=== PATIENT | female | born 1950 | race Caucasian/White ===

== ENCOUNTER → 2017-02-21 | Outpatient (CLI) | payer MEDICARE ==
--- NOTE | 2017-02-22 07:35 | US ---
EXAMINATION TYPE: US carotid duplex BILAT DATE OF EXAM: 02/21/2017 COMPARISON: NONE CLINICAL HISTORY: R26.89 ABNORMALITIES OF GAIT AND MOBILITY; Left facial numbness EXAM MEASUREMENTS: RIGHT: Peak Systolic Velocity (PSV) cm/sec ----- Right CCA: 61.6 ----- Right ICA: 84.1 ----- Right ECA: 74.8 ICA/CCA ratio: 1.4 RIGHT: End Diastole cm/sec ----- Right CCA: 19.7 ----- Right ICA: 31.2 ----- Right ECA: 16.7 LEFT: Peak Systolic Velocity (PSV) cm/sec ----- Left CCA: 62.5 ----- Left ICA: 83.4 ----- Left ECA: 75.2 ICA/CCA ratio: 1.3 LEFT: End Diastole cm/sec ----- Left CCA: 20.6 ----- Left ICA: 36.3 ----- Left ECA: 12.2 VERTEBRALS (direction of flow): Right Vertebral: Antegrade Left Vertebral: Antegrade Rhythm: Normal Very mild intimal thickening is noted at bilateral ICA and PSV is wnl. Incidental finding of bilatera l thyroid nodules are imaged. IMPRESSION: 1. No evidence of hemodynamically significant stenosis within either carotid system. 2. Incidentally identified thyroid nodules. Full characterization could be performed with thyroid ult rasound.
--- NOTE | 2017-02-22 07:36 | US ---
EXAMINATION TYPE: US pelvic complete DATE OF EXAM: 02/21/2017 COMPARISON: CT 2016 CLINICAL HISTORY: N93.9 ABN Uterine Vaginal Bleeding. Vaginal bleeding x 1 month post menopausal; G; not on hormones TECHNIQUE: Transabdominal (TA) Date of LMP: in 40's EXAM MEASUREMENTS: Uterus: 5.8 x 3.6 x 1.9 cm Endometrial Stripe: 0.6 cm Right Ovary: not seen Left Ovary: not seen 1. Uterus: Anteverted 2. Endometrium: small cyst noted mid endometrium on image # [id number] and # [id number] 3. Right Ovary: not identified 4. Left Ovary: not identified 5. Bilateral Adnexa: wnl 6. Posterior cul-de-sac: wnl Patient was unable to tolerate TV US to better assess endometrium. IMPRESSION: Somewhat limited exam as the patient could not tolerate the transvaginal technique. Endom etrium appears heterogenous and measures upper limits for the patient's postmenopausal status. Direct visualization is recommended.
== END | disposition home or self-care (01) ==
LOC: RADUSWWP 15:19
PROVIDERS: ATTEND Family Medicine
DX: N93.9 Abnormal uterine and vaginal bleeding, unspecified (principal); R26.89 Other abnormalities of gait and mobility; Z78.0 Asymptomatic menopausal state
CPT/HCPCS: 76856; 93880

== ENCOUNTER → 2017-03-21 | Outpatient (CLI) | payer MEDICARE ==
--- NOTE | 2017-03-21 15:35 | US ---
EXAMINATION TYPE: US thyroid st tissue head/neck DATE OF EXAM: 03/21/2017 COMPARISON: Carotid us saw nodules CLINICAL HISTORY: E04.1 Thyroid Nodule. GLAND SIZE: Right Lobe: 4.4 x 1.0 x 1.5 cm Overall Parenchyma: homogenous Left Lobe: 4.4 x 1.2 x1.9 cm Overall Parenchyma: homogeneous Isthmus Thickness: 0.3 cm NODULES RIGHT: # of nodules measured on right: 2 1. 0.7 X 0.5 x 0.7 cm hypoechoic solid nodule at the mid pole with well-defined margins. This nodu le is wider than tall and shows intranodular vascularity. No prior. 2. 1.0 X 0.8 x 0.8 cm isoechoic solid nodule at the lower pole with well-defined margins. This nodu le is taller than wide and shows intranodular vascularity. LEFT: # of nodules measured on left: 3 1. 0.8 X 0.7 x 0.8 cm isoechoic solid nodule at the upper pole with poorly defined margins. This n odule is wider than tall and shows intranodular vascularity. 2. 0.7 X 0.6 x 0.6 cm hypoechoic solid nodule at the mid pole with well-defined margins. This nodul e is wider than tall and shows intranodular vascularity. 3. 0.6 X 0.5 x 0.7 cm hypoechoic solid nodule at the lower pole with well-defined margins. This nod ule is wider than tall and shows no intranodular vascularity. ISTHMUS: # of nodules measured in the isthmus: 0 Bilateral neck scanned, no evidence of lymphadenopathy. IMPRESSION: Multiple thyroid nodules in a mildly enlarged thyroid gland suggests multinodular goiter. The largest solid nodule is of indeterminate suspicion within the right inferior pole, isoechoic, and measuring 1.0 cm. Percutaneous biopsy could be performed of this nodule. Alternatively follow-up ultrasound in 6-12 months could be performed.
--- NOTE | 2017-03-21 16:14 | BD ---
EXAMINATION TYPE: MG DEXA axial skeleton. DATE OF EXAM: 03/21/2017 COMPARISON: NONE CLINICAL HISTORY: screening osteoporosis Height: 5'7 Weight: 212 FRAX RISK QUESTIONS: Alcohol (3 or more units per day): no Family History (Parent hip fracture): no Glucocorticoids (More than 3mos): no (Ex: prednisone, prednisolone, methylprednisolone, dexamethasone, and hydrocortisone). History of Fracture in Adulthood: no Secondary Osteoporosis: 1. Type 1 Diabetes: no 2. Hyperthyroidism: no 3. Menopause before 45: no 4. Malnutrition: no 5. Chronic liver disease: no Rheumatoid Arthritis: no Current Tobacco Use: no RISK FACTORS HISTORY OF: Active: Postmenopausal woman: MEDICATIONS: Additional Medications: arthritis meds, cholesterol, anxiety Additional History: EXAM MEASUREMENTS: Bone mineral densitometry was performed using the [employer] System. Bone mineral density as measured about the Lumbar spine is: ----- L1-L4(G/cm2): 1.291 T Score Values are as follows: ----- L2: 0.2 ----- L3: 1.5 ----- L4: 1.2 ----- L1-L4: 0.9 Bone mineral density about the R hip (g/cm2): 1.003 Bone mineral density about the L hip (g/cm2): 1.004 T Score values are as follows: -----R Neck: -0.3 -----L Neck: -0.2 -----R Total: -0.3 -----L Total: -0.2 IMPRESSION: Normal (Values between +1 and -1 indicate normal bone mass). Consider repeating this study in 5 year s or sooner if there is some new clinical indication. NOTE: T-SCORE=SD OF THE YOUNG ADULT MEAN.
== END | disposition home or self-care (01) ==
LOC: RADUSWWP 14:09
PROVIDERS: ATTEND Family Medicine
DX: E04.2 Nontoxic multinodular goiter (principal); Z13.820 Encounter for screening for osteoporosis
CPT/HCPCS: 76536; 77080

== ENCOUNTER → 2017-03-26 | Outpatient (CLI) | payer MEDICARE | END | disposition home or self-care (01) | LOC: LABWHC1 10:42 | PROVIDERS: ATTEND Family Medicine | DX: E04.1 Nontoxic single thyroid nodule (principal) | CPT/HCPCS: 36415; 84439; 84443 ==

== ENCOUNTER → 2017-04-24 | Outpatient (CLI) | payer MEDICARE | END | disposition home or self-care (01) | LOC: LABWHC1 10:23 | PROVIDERS: ATTEND Family Medicine | DX: B80 Enterobiasis (principal) | CPT/HCPCS: 87328; 87329 ==

== ENCOUNTER → 2017-06-29 | Outpatient (CLI) | payer MEDICARE ==
--- NOTE | 2017-07-03 10:08 | MM ---
Reason for exam: screening (asymptomatic). Last mammogram was performed 1 year and 2 months ago. History: Patient is postmenopausal and is nulliparous. Benign excisional biopsy of both breasts, 1970. Taking estrogen for 2 years. Taking progesterone for 2 years. Physical Findings: A clinical breast exam by your physician is recommended on an annual basis and results should be correlated with mammographic findings. MG 3D Screening Mammo W/Cad Bilateral CC and MLO view(s) were taken. Prior study comparison: May 12, 2016, mammogram, performed at [facility]. May 11, 2015, mammogram, performed at [facility]. There are scattered fibroglandular densities. No significant changes when compared with prior studies. ASSESSMENT: Benign, BI-RAD 2 RECOMMENDATION: Routine screening mammogram of both breasts in 1 year.
== END | disposition home or self-care (01) ==
LOC: RADMAMWWP 14:14
PROVIDERS: ATTEND Family Medicine
DX: Z12.31 Encounter for screening mammogram for malignant neoplasm of breast (principal); E04.1 Nontoxic single thyroid nodule
CPT/HCPCS: 77063; 77067

== ENCOUNTER → 2017-08-21 | Outpatient (CLI) | payer MEDICARE ==
--- NOTE | 2017-08-21 14:52 | US ---
EXAMINATION TYPE: US thyroid st tissue head/neck DATE OF EXAM: 08/21/2017 COMPARISON: NONE CLINICAL HISTORY: E04.1 Nontoxic single thyroid nodule. follow up nodules. No hx of biopsy GLAND SIZE: Right Lobe: 5.3 x 1.3 x 1.3 cm Overall Parenchyma: homogenous Left Lobe: 4.5 x 1.6 x 1.5 cm Overall Parenchyma: homogeneous Isthmus Thickness: 0.4 cm NODULES RIGHT: # of nodules measured on right: 2 1. 0.7 X 0.7 x 0.6 cm hypoechoic solid nodule at the mid pole with well-defined margins. This nodu le is wider than tall and shows intranodular vascularity. Prior size: 0.7 x 0.5 x 0.7 cm 2. 0.7 X 0.8 x 0.6 cm isoechoic solid nodule at the lower pole with well-defined margins. This nodu le is wider than tall and shows intranodular vascularity. Prior size: 1.0 x 0.8 x 0.8 cm LEFT: # of nodules measured on left: 4 1. 1.0 X 0.8 x 0.6 cm isoechoic solid nodule at the upper pole with poorly defined margins. This n odule is taller than wide and shows intranodular vascularity. Prior size: 0.8 x 0.7 x 0.8 cm 2. 0.8 X 0.6 x 0.6 cm hypoechoic solid nodule at the mid pole with well-defined margins. This nodul e is taller than wide and shows intranodular vascularity. Prior size: 0.7 x 0.6 x 0.6 cm 3. 0.6 X 0.7 x 0.5 cm hypoechoic solid nodule at the lower pole with well-defined margins. This nod ule is wider than tall and shows no intranodular vascularity. Prior size: 0.6 x 0.5 x 0.7 cm 4. 0.5 X 0.4 x 0.3 cm cystic nodule at the upper pole with well-defined margins. This nodule is elizabeth ler than wide and shows no intranodular vascularity. Prior size: No prior ISTHMUS: # of nodules measured in the isthmus: 1 1. 0.4 X 0.5 x 0.3 cm hypoechoic solid nodule seen right laterally with well-defined margins. Thi s nodule is wider than tall and shows no intranodular vascularity. Prior size: No prior Bilateral neck scanned, no evidence of lymphadenopathy. IMPRESSION: Overall stability of multiple bilateral thyroid nodules in a multinodular thyroid goiter with 2 new s ubcentimeter nodules identified within the isthmus and left thyroid gland.
== END | disposition home or self-care (01) ==
LOC: RADUSWWP 13:57
PROVIDERS: ATTEND Family Medicine
DX: E04.2 Nontoxic multinodular goiter (principal)
CPT/HCPCS: 76536

== ENCOUNTER → 2018-01-17 | Outpatient (CLI) | payer MEDICARE ==
--- NOTE | 2018-01-17 21:35 | CT ---
"EXAMINATION TYPE: CT brain w con DATE OF EXAM: 01/17/2018 COMPARISON: None HISTORY: Numbness to left side of face x [address] DLP: 945.5 mGycm Automated exposure control for dose reduction was used. CONTRAST: CT scan of the head is performed with IV Contrast, patient injected with 100 mL of Isovue 300. FINDINGS: In the high right frontal lobe there is a rim-enhancing 1.1 x 1.1 cm lesion axial image 39 that measu res 1.2 cm craniocaudal dimension sagittal image 22. There is low density extending laterally and inf eriorly consistent with vasogenic edema. No additional enhancing lesions are seen. Cosme-white matter differentiation is otherwise preserved. The ventricles and sulci are within normal limits in size. T he globes are intact and the visualized sinuses are clear. IMPRESSION: Rim-enhancing 1.1 cm lesion high right frontal lobe with local mass effect or surrounding vasogenic edema. Differential includes abscess and neoplasm, metastatic disease would BE favored ove r primary brain tumor such as GBM. Other etiologies are not excluded. Clinical correlation advised. A Yellow level critical message alert has been initiated for Flory Cordoba MD via the [employer] | Critical Results System on 01/17/2018 9:32 PM. This message alert has been sent to Flory cheatham MD via the preferences provided by the clinician for the receipt of Radiology Critical Findings. Joyce casillasage ID [id number]."
== END | disposition home or self-care (01) ==
LOC: RADCTMAIN 17:41
PROVIDERS: ATTEND Family Medicine
DX: G93.89 Other specified disorders of brain (principal)
CPT/HCPCS: 82565; 84520; 70460; 36415; Q9967

== ENCOUNTER → 2018-01-31 | Outpatient (CLI) | payer MEDICARE ==
--- NOTE | 2018-01-31 10:19 | US ---
EXAMINATION TYPE: US abdomen complete DATE OF EXAM: 01/31/2018 COMPARISON: NONE CLINICAL HISTORY: R93.3 Abn findings on imaging of digestive tract. Patient states she had a PET scan last week and was told to have Ultrasound based on finding of PET EXAM MEASUREMENTS: Liver Length: 14.0 cm Gallbladder Wall: 0.2 cm CBD: 0.47 cm Spleen: 9.8 cm Right Kidney: 8.2 x 4.8 x 5.0 cm Left Kidney: 9.3 x 5.5 x 5.8 cm Pancreas: Obscured by bowel gas Liver: wnl Gallbladder: No stones seen Evidence for sonographic Ortiz's sign: no CBD: wnl Spleen: Multiple hypoechoic areas seen throughout spleen Right Kidney: No hydronephrosis or masses seen Left Kidney: No hydronephrosis or masses seen Upper IVC: wnl Abd Aorta: wnl Order states ATTN: spleen Multiple hypoechoic areas seen The liver is homogenous. The intrahepatic portion of the IVC and proximal abdominal aorta are within normal limits. There is no evidence of cholelithiasis. Common bile duct is unremarkable. The visu alized portions of the pancreas are homogenous. Kidneys are symmetric and free of hydronephrosis. N o renal lesions are seen. IMPRESSION: 1. Multiple nonspecific hypoechoic area seen throughout the spleen. Correlate with CT. CT from 2017 r eveals no splenic abnormalities.
== END | disposition home or self-care (01) ==
LOC: RADUSMAIN 09:22
PROVIDERS: ATTEND Family Medicine
DX: R93.3 Abnormal findings on diagnostic imaging of other parts of digestive tract (principal)
CPT/HCPCS: 76700

== ENCOUNTER → 2018-02-27 | Outpatient (CLI) | payer MEDICARE ==
--- NOTE | 2018-02-27 10:14 | MR ---
EXAMINATION TYPE: MR brain wo/w con DATE OF EXAM: 02/27/2018 COMPARISON: CT brain from January 17, 2018 HISTORY: Cerebral infarction per order, symptoms of left facial numbness for 6 months. Symptoms of di zziness an mass in brain per patient. TECHNIQUE: Multiplanar, multisequence images of the brain and brainstem is performed without and with IV contras t, utilizing 9.5 mL intravenous Gadavist . FINDINGS: Diffusion weighted images demonstrate no evidence of a recent infarct or other diffusion ab normality. There is no worrisome extra-axial fluid collection. The ventricular system and cisternal spaces are normal in size and appearance. The brain volume is age appropriate. There are few scatte red small foci of T2 hyperintensity seen throughout the white matter bilaterally. Approximate 5 punct ate lesions measuring under 3 mm in size are scattered throughout the brain parenchyma bilaterally. Correlating with recent CT in the high right frontal lobe there is heterogeneous with rim enhancing i ntraparenchymal mass measuring 1.5 x 1.3 cm transversely axial image 27 x 1.4 cm craniocaudal dimensi on coronal image 17 prepped slightly larger in size versus recent CT. There is significant local mass effect with surrounding vasogenic edema appreciated extending inferiorly and posteriorly similar to CT. No new or additional enhancing lesions are clearly seen on MRI. Midline structures demonstrate normal morphology. The craniocervical junction appears within normal limits. The dural venous sinuses appear patent. The visualized sinuses are clear and the globes are intact. IMPRESSION: There is 1.5 cm heterogeneous rim-enhancing right frontal intraparenchymal mass perhaps s lightly larger from CT. Primary neoplasm versus more likely metastatic neoplasm would be favored in d ifferential, other etiologies such as abscess are not excluded. Clinical correlation advised. Oncolog y referral recommended. Consider neurosurgical and radiation oncology referral.
== END | disposition home or self-care (01) ==
LOC: RADMRIMAIN 09:13
PROVIDERS: ATTEND Family Medicine
DX: G93.89 Other specified disorders of brain (principal)
CPT/HCPCS: 70553; A9581

== ENCOUNTER → 2018-03-05 | Outpatient (CLI) | payer MEDICARE ==
--- NOTE | 2018-03-05 15:06 | US ---
EXAMINATION TYPE: US thyroid st tissue head/neck DATE OF EXAM: 03/05/2018 COMPARISON: 2018 CLINICAL HISTORY: E04.1 Nontoxic single thyroid nodule. GLAND SIZE: Right Lobe: 5.0 x 1.4 x 1.8 cm Overall Parenchyma: homogenous Left Lobe: 5.3 x 1.2 x 1.9 cm Overall Parenchyma: homogeneous Isthmus Thickness: 0.2 cm NODULES RIGHT: # of nodules measured on right: 2 1. 0.8 X 0.7 x 0.6 cm solid nodule at the mid pole with well-defined margins; . This nodule is wid er than tall and shows intranodular vascularity. Prior size: 0.7 x 0.7 x 0.6 cm 2. 0.8 X 0.8 x 0.6 cm isoechoic solid nodule at the lower pole with well-defined margins; . This no dule is wider than tall and shows intranodular vascularity. Prior size: 0.7 x 0.8 x 0.6 cm LEFT: # of nodules measured on left: 4 1. 1.4 X 0.6 x 0.3 cm solid nodule at the upper pole with poorly defined margins; . This nodule is taller than wide and shows intranodular vascularity. Prior size: 0.8 x 0.7 x 0.8 cm 2. 0.8 X 0.6 x 0.7 cm solid nodule at the mid pole with well-defined margins; . This nodule is wide r than tall and shows intranodular vascularity. Prior size: 0.8 x 0.6 x 0.6 cm 3. 0.8 X 0.8 x 0.6 cm solid nodule at the lower pole with well-defined margins; This nodule is wider than tall and shows no intranodular vascularity. Prior size: 0.6 x 0.7 x 0.5 cm 4. 0.4 X 0.4 x 0.3 cm cyst nodule at the upper pole with well-defined margins; . This nodule is wi mia than tall and shows no intranodular vascularity. Prior size: 0.5 x 0.4 x 0.3 cm ISTHMUS: # of nodules measured in the isthmus: 1 1. 0.4 X 0.2 x 0.4 cm mixed nodule at the rt side pole with well-defined margins; . This nodule is wider than tall and shows no intranodular vascularity. Prior size: 0.4 x 0.5 x 0.3 cm Bilateral neck scanned, no evidence of lymphadenopathy. IMPRESSION: 1. Thyromegaly with multinodular thyroid with a couple of the lesions demonstrating interval increase in size most notably the 1.4 cm nodule within the left lobe.
== END | disposition home or self-care (01) ==
LOC: RADUSWWP 14:01
PROVIDERS: ATTEND Family Medicine
DX: E04.2 Nontoxic multinodular goiter (principal)
CPT/HCPCS: 76536

== ENCOUNTER → 2018-03-06 | Outpatient (CLI) | payer MEDICARE ==
[2018-03-06 07:42] LABS: Blood Urea Nitrogen 18 mg/dL (7-17)
--- NOTE | 2018-03-06 10:52 | CT ---
EXAMINATION TYPE: CT ChestAbdPelvis w con DATE OF EXAM: 03/06/2018 INDICATION: mass/lesion head COMPARISON: 05/18/[address] DLP: 1596.10 mGycm CONTRAST: Performed with Oral Contrast and with IV Contrast, patient injected with 100 mL of Isovue 300. TECHNIQUE: Axial images at 5 mm thick sections. Reconstructed images in the coronal plane. Delayed images through the kidneys. FINDINGS: CT CHEST: Portion of the thyroid visualized is normal. No suspicious lung nodules or focal infiltrates are present. No enlarged mediastinal or hilar adenopathy is evident. The ascending aorta diameter at the level of the main pulmonary artery is 3.6 cm. The main pulmonary artery diameter at the bifurcation is 2.[address] ABDOMEN: Liver: Normal Spleen: Normal Pancreas: Mildly atrophic Adrenal glands: The adrenal glands are normal. Gallbladder: Normal Kidneys: No masses are evident. No hydronephrosis is present. No cysts are present. Delayed images were obtained through the kidneys, which remain unremarkable. Peripelvic cysts are present on the le ft. No ureteral dilatation is evident. Aorta: Vascular calcification is within the aorta. Inferior vena cava: Normal. CT PELVIS: Loops of bowel within the abdomen and pelvis are normal. There are loops of bowel which are incom pletely distended or lack oral contrast limiting their evaluation. Diverticulosis without acute diver ticulitis is within the sigmoid colon. Appendix: Not identified. No suspicious tubular structures or inflammatory changes are evident. Urinary bladder: Normal. Genitourinary structures: Uterus and adnexal regions are normal. Osseous structures: No suspicious lytic or sclerotic lesions. IMPRESSIONS: 1. No suspicious changes to suggest metastatic disease.
== END ==
LOC: RADCTMAIN 06:12
PROVIDERS: ATTEND Neurological Surgery
DX: R22.0 Localized swelling, mass and lump, head (principal)
CPT/HCPCS: 82565; 84520; 71260; 74177; 36415; Q9967

== ENCOUNTER → 2018-08-21 | Outpatient (CLI) | payer MEDICARE ==
--- NOTE | 2018-08-21 13:18 | US ---
EXAMINATION TYPE: US venous doppler duplex LE LT DATE OF EXAM: 08/21/2018 12:17 PM COMPARISON: NONE CLINICAL HISTORY: R22.42 Localized swelling. Left leg swelling, pt currently on chemo for brain CA SIDE PERFORMED: Left TECHNIQUE: The lower extremity deep venous system is examined utilizing real time linear array sonog daron with graded compression, doppler sonography and color-flow sonography. VESSELS IMAGED: External Iliac Vein (EIV) Common Femoral Vein Deep Femoral Vein Greater Saphenous Vein * Femoral Vein Popliteal Vein Small Saphenous Vein * Proximal Calf Veins (* superficial vessels) Left Leg: Positive for DVT, from left EIV to proximal calf veins Results called Dr. Cortez at time of exam IMPRESSION: DVT as noted above.
== END ==
LOC: RADUSWWP 11:44
PROVIDERS: ATTEND Internal Medicine Hematology & Oncology
DX: I82.890 Acute embolism and thrombosis of other specified veins (principal)

== ENCOUNTER 2018-09-06 00:22 | Inpatient (IN) | payer MEDICARE ==
--- NOTE | 2018-09-06 00:41 | ED ---
GI Bleed HPI - General Chief complaint: GI Bleed Stated complaint: GI Bleed Time Seen by Provider: 09/06/18 00:40 Source: patient Mode of arrival: ambulatory Limitations: no limitations - History of Present Illness Initial comments: Casi is a 8-year-old female with an extensive past medical history most significant for brain cancer treated with chemo and radiation, patient was diagnosed with a left lower extremity DVT last month and prescribed L Diana. Patient reports that she was diagnosed with influenza A yesterday and prescribed Tamiflu. She reports she's had multiple soft bowel movements throughout the day today but this evening she felt as though she was given have a bowel movement but just passed large blood, per rectum. Patient has no history of GI bleeding. She does have a history of diverticulosis on previous colonoscopy. Upon arrival was noted the patient was per family tachycardic with heart rates in the 150s, patient denied any palpitations or history of A. fib. - Related Data Home Medications Medication Instructions Recorded Confirmed Atorvastatin [Lipitor] 10 mg PO HS 05/18/17 05/18/17 LORazepam [Ativan] 0.5 mg PO DAILY PRN 05/18/17 05/18/17 Previous Rx's Medication Instructions Recorded metroNIDAZOLE [Flagyl] 500 mg PO QID 10 Days 05/18/17 Allergies Allergy/AdvReac Type Severity Reaction Status Date / Time cephalexin Allergy Rash/Hives Verified 09/06/18 00:36 Review of Systems ROS Statement: Those systems with pertinent positive or pertinent negative responses have been documented in the HPI. ROS Other: All systems not noted in ROS Statement are negative. Past Medical History Past Medical History: Cancer, Deep Vein Thrombosis (DVT), Hyperlipidemia Additional Past Medical History / Comment(s): diverticulitis, brain cancer History of Any Multi-Drug Resistant Organisms: None Reported Past Surgical History: Tonsillectomy Additional Past Surgical History / Comment(s): breast surgery Past Psychological History: No Psychological Hx Reported Smoking Status: Never smoker Past Alcohol Use History: Occasional Past Drug Use History: None Reported General Exam - General Exam Comments Initial Comments: Physical Exam GENERAL: Chronically ill appearing No distress HENT: Normocephalic Devise attached to scalp EYES: PERRL, EOMI PULMONARY: Unlabored respirations. No audible rales rhonchi or wheezing was noted. CARDIOVASCULAR: Irregularly irregular, tachycardic ABDOMEN: Soft and nontender with normal bowel sounds. SKIN: Skin is clear with no lesions or rashes and otherwise unremarkable. No Pallor : Deferred NEUROLOGIC: Patient is alert and oriented x3. Moving all extremities spontaneously MUSCULOSKELETAL: Normal extremities with adequate strength and full range of motion. No lower extremity swelling or edema. No calf tenderness. PSYCHIATRIC: Normal psychiatric evaluation. Limitations: no limitations Limitations: no limitations Course Vital Signs 09/06/18 09/06/18 09/06/18 00:33 01:50 02:34 Temperature 97.7 F Pulse Rate 73 152 H 100 Respiratory 18 18 19 Rate Blood Pressure 101/68 115/104 100/65 O2 Sat by Pulse 97 99 97 Oximetry 09/06/18 09/06/18 09/06/18 02:50 03:12 04:44 Temperature Pulse Rate 102 H 126 H 97 Respiratory 18 22 19 Rate Blood Pressure 111/93 121/79 116/75 O2 Sat by Pulse 96 96 Oximetry Medical Decision Making - Medical Decision Making Patient was seen and evaluated history was obtained from the patient and review of medical record Patient presented for bright red blood per rectum however upon arrival it was noted the patient was tachycardic with heart rate in the 150s she denies any h istory of A. fib EKG concerning for A. fib Labs and imaging are ordered Rectal exam has bright red blood Due to the fact that the patient is on L Diana and does have GI bleeding I do not feel she will benefit from heparin for this new A. fib Cardizem drip was ordered for weight management, patient did receive a bolus of Cardizem shortly afterward she did become hypotensive and her heart rate was down to the 80s, Cardizem drip was then decreased from 10-5 she was heart rate then increased again after she ambulated to the restroom and her Cardizem drip was increased again to 10. Electrolytes are unremarkable, troponin is negative, considering that the patient does have a recent history of DVT and is now presenting with new arrhythmia there is concern for pulmonary embolism therefore PE study was ordered but resulted with no evidence of acute pulmonary embolism. High suspicion the patient's lower GI bleeding is due to diverticular bleeding and she does have a history of diverticulitis in the past known diverticula and bright red blood, she had no melena. She's not had any active bleeding while in the emergency department. I will plan to admit the patient for lower GI bleeding with new onset atrial fibrillation. - Lab Data Result diagrams: 09/06/18 01:40 09/06/18 01:40 Lab Results 09/06/18 09/06/18 09/06/18 Range/Units 01:40 01:40 01:40 WBC 3.5 L (3.8-10.6) k/uL RBC 4.17 (3.80-5.40) m/uL Hgb 12.8 (11.4-16.0) gm/dL Hct 38.4 (34.0-46.0) % MCV 92.0 (80.0-100.0) fL MCH 30.6 (25.0-35.0) pg MCHC 33.2 (31.0-37.0) g/dL RDW 15.5 (11.5-15.5) % Plt Count 201 (150-450) k/uL Neutrophils % 60 % Lymphocytes % 22 % Monocytes % 11 % Eosinophils % 4 % Basophils % 0 % Neutrophils # 2.1 (1.3-7.7) k/uL Lymphocytes # 0.8 L (1.0-4.8) k/uL Monocytes # 0.4 (0-1.0) k/uL Eosinophils # 0.1 (0-0.7) k/uL Basophils # 0.0 (0-0.2) k/uL PT (9.0-12.0) sec INR (<1.2) APTT (22.0-30.0) sec Sodium 140 (137-145) mmol/L Potassium 3.4 L (3.5-5.1) mmol/L Chloride 109 H (98-107) mmol/L Carbon Dioxide 24 (22-30) mmol/L Anion Gap 7 mmol/L BUN 12 (7-17) mg/dL Creatinine 0.53 (0.52-1.04) mg/dL Est GFR (CKD-EPI)AfAm >90 (>60 ml/min/1.73 sqM) Est GFR (CKD-EPI)NonAf >90 (>60 ml/min/1.73 sqM) Glucose 119 H (74-99) mg/dL Calcium 9.0 (8.4-10.2) mg/dL Magnesium 2.1 (1.6-2.3) mg/dL Total Bilirubin 0.4 (0.2-1.3) mg/dL AST 21 (14-36) U/L ALT 21 (9-52) U/L Alkaline Phosphatase 81 (38-126) U/L Troponin I (0.000-0.034) ng/mL NT-Pro-B Natriuret Pep 1270 pg/mL Total Protein 5.5 L (6.3-8.2) g/dL Albumin 3.0 L (3.5-5.0) g/dL Stool Occult Blood (Negative) 09/06/18 09/06/18 09/06/18 Range/Units 01:40 01:40 03:17 WBC (3.8-10.6) k/uL RBC (3.80-5.40) m/uL Hgb (11.4-16.0) gm/dL Hct (34.0-46.0) % MCV (80.0-100.0) fL MCH (25.0-35.0) pg MCHC (31.0-37.0) g/dL RDW (11.5-15.5) % Plt Count (150-450) k/uL Neutrophils % % Lymphocytes % % Monocytes % % Eosinophils % % Basophils % % Neutrophils # (1.3-7.7) k/uL Lymphocytes # (1.0-4.8) k/uL Monocytes # (0-1.0) k/uL Eosinophils # (0-0.7) k/uL Basophils # (0-0.2) k/uL PT 9.8 (9.0-12.0) sec INR 0.9 (<1.2) APTT 23.1 (22.0-30.0) sec Sodium (137-145) mmol/L Potassium (3.5-5.1) mmol/L Chloride (98-107) mmol/L Carbon Dioxide (22-30) mmol/L Anion Gap mmol/L BUN (7-17) mg/dL Creatinine (0.52-1.04) mg/dL Est GFR (CKD-EPI)AfAm (>60 ml/min/1.73 sqM) Est GFR (CKD-EPI)NonAf (>60 ml/min/1.73 sqM) Glucose (74-99) mg/dL Calcium (8.4-10.2) mg/dL Magnesium (1.6-2.3) mg/dL Total Bilirubin (0.2-1.3) mg/dL AST (14-36) U/L ALT (9-52) U/L Alkaline Phosphatase (38-126) U/L Troponin I <0.012 (0.000-0.034) ng/mL NT-Pro-B Natriuret Pep pg/mL Total Protein (6.3-8.2) g/dL Albumin (3.5-5.0) g/dL Stool Occult Blood Positive H (Negative) - EKG Data -: EKG Interpreted by Me EKG Comments: EKG was obtained at 90 9 AM due to arrhythmia noted on electronic device monitor and profound tachycardia Rate is 163 rhythm is narrow complex irregularly irregular rhythm consistent with atrial fibrillation with rapid ventricular response, normal axis, normal intervals, QS 82, QTc [address] elevations depressions no evidence of acute ischemia or infarction. Repeat EKG was obtained at 4:48 AM, repeat is 1:15, rhythm is narrow complex irregularly irregular consistent with atrial fibrillation, normal axis, normal intervals, QS 82, QTc [address] elevations depressions or evidence of acute ischemia or infarction. Critical Care Time Critical Care Time: Yes Total Critical Care Time: 30 Critical Care Time: Critical Care Critical care time was exclusive of separately billable procedures and treating other patients. Critical care was necessary to treat or prevent imminent or life-threatening deterioration. Critical care was time spent personally by me on the following activities: development of treatment plan with patient or surrogate, discussions with consu ltants, discussions with primary provider, evaluation of patient's response to treatment, examination of patient, obtaining history from patient or surrogate, ordering and performing treatments and interventions, ordering and review of laboratory studies, ordering and review of radiographic studies, pulse oximetry, re-evaluation of patient's condition and review of old charts. Disposition Clinical Impression: Lower GI bleed, Atrial fibrillation with RVR, New onset atrial fibrillation Disposition: ADMITTED IP TO THIS HOSP Condition: Serious Is patient prescribed a controlled substance at d/c from ED?: No Referrals: Flory Cordoba MD [Primary Care Provider] - 1-2 days
[2018-09-06] MEDS ORDERED: SODIUM CHLORIDE 0.9% 1,000 ML IV STA (01:08)
[2018-09-06] MEDS ORDERED: DILTIAZEM DRIP BOLUS FROM BAG 1 MG SOLN IV ONE (01:09)
[2018-09-06] MEDS ORDERED: DILTIAZEM 125 MG in SODIUM CHLORIDE 0.9% 100 ML IV SCH (01:30)
[2018-09-06 01:54] LABS: Basophils % (A) 0 %; Eosinophils # (A) 0.1 k/uL (0-0.7); Eosinophils % (A) 4 %; HCT 38.4 % (34.0-46.0); HGB 12.8 gm/dL (11.4-16.0); Lymphocytes # (A) 0.8 k/uL (1.0-4.8); Lymphocytes % (A) 22 %; MCH 30.6 pg (25.0-35.0); MCHC 33.2 g/dL (31.0-37.0); Mean Platelet Volume 7.7; Monocytes # (A) 0.4 k/uL (0-1.0); Monocytes % (A) 11 %; Neutrophils # (A) 2.1 k/uL (1.3-7.7); Neutrophils % (A) 60 %; Platelet Count 201 k/uL (150-450); RBC 4.17 m/uL (3.80-5.40); RDW 15.5 % (11.5-15.5); WBC 3.5 k/uL (3.8-10.6)
[2018-09-06 02:11] LABS: INR 0.9 (<1.2); Partial Thromboplastin Time 23.1 sec (22.0-30.0); Prothrombin Time 9.8 sec (9.0-12.0)
[2018-09-06 02:18] LABS: ALT 21 U/L (9-52); AST 21 U/L (14-36); Alkaline Phosphatase 81 U/L (38-126); Anion Gap 7 mmol/L; Blood Urea Nitrogen 12 mg/dL (7-17); Carbon Dioxide 24 mmol/L (22-30); Chloride 109 mmol/L (98-107); Glucose 119 mg/dL (74-99); Magnesium 2.1 mg/dL (1.6-2.3); Potassium 3.4 mmol/L (3.5-5.1); Sodium 140 mmol/L (137-145); Total Bilirubin 0.4 mg/dL (0.2-1.3); Total Protein 5.5 g/dL (6.3-8.2)
--- NOTE | 2018-09-06 02:42 | XR ---
EXAM: XR Chest, 2 Views CLINICAL HISTORY: ITS.REASON XR Reason: Chest Pain TECHNIQUE: Frontal and lateral views of the chest. COMPARISON: No relevant prior studies available. FINDINGS: Lungs: Unremarkable. The lungs are clear. Pleural space: Unremarkable. No pneumothorax. Heart: Moderate cardiomegaly versus artifact from poor inspiration. Mediastinum: Unremarkable. Bones/joints: Mild degenerative changes of the thoracic spine. Other findings: Poor inspiration. IMPRESSION: No acute findings.
--- NOTE | 2018-09-06 04:38 | CT ---
EXAM: CT Angiography Chest With Intravenous Contrast CLINICAL HISTORY: ITS.REASON CT Reason: Pain TECHNIQUE: Axial computed tomographic angiography images of the chest with intravenous contrast using pulmonary embolism protocol. CTDI is 9.2 mGy and DLP is 372.8 mGy-cm. This CT exam was performed using one or more of the following dose reduction techniques: automated exposure control, adjustment of the mA and/or kV according to patient size, and/or use of iterative reconstruction technique. MIP reconstructed images were created and reviewed. COMPARISON: CT dated 03/06/2018. FINDINGS: Pulmonary arteries: Unremarkable. No evidence of pulmonary embolism. Aorta: No acute findings. No thoracic aortic aneurysm. Lungs: Unchanged 4 mm solid pulmonary nodule in the right middle lobe (series 406 image 100). Mild bronchiectasis and bronchial wall thickening diffusely. Pleural space: Unremarkable. No significant effusion. No pneumothorax. Heart: Unremarkable. No cardiomegaly. No significant pericardial effusion. No evidence of RV dysfunction. Bones/joints: No acute fracture. No dislocation. Soft tissues: Unremarkable. Lymph nodes: Unremarkable. No enlarged lymph nodes. Tubes, lines and devices: Unchanged 9 mm sub-solid pulmonary nodule with a 7 mm solid component in the right middle lobe (series 406 image 108). ACR White Paper guidelines (MacMahon, et al. Radiology 2017; 284(1):228-43) recommend follow-up chest CT every year until 5 years. IMPRESSION: 1. No evidence of pulmonary embolism. 2. Unchanged 4 mm solid pulmonary nodule in the right middle lobe (series 406 image 100). ACR White Paper guidelines (MacMahon, et al. Radiology 2017; 284(1):228-43) suggest the following. For low-risk patients, no follow-up is necessary. For high-risk patients (smoking history or other known risk factors) an optional chest CT at 12 months could be performed.
[2018-09-06] MEDS ORDERED: NALOXONE 0.4 MG/ML 1 ML VIAL IV PRN (04:46)
[2018-09-06] MEDS ORDERED: ACETAMINOPHEN TAB 325 MG TAB PO PRN (05:37)
[2018-09-06] MEDS ORDERED: IBUPROFEN 400 MG TAB PO PRN (05:37)
[2018-09-06 06:59] VITALS: BMI 35.1
--- NOTE | 2018-09-06 10:38 | ECHOF ---
Referral Reason:A-fib/Heart failure MEASUREMENTS -------- HEIGHT: 170.2 cm WEIGHT: 103.4 kg BP: RVIDd: 2.6 cm (< 3.3) IVSd: 1.3 cm (0.6 - 1.1) LVIDd: 3.5 cm (3.9 - 5.3) LVPWd: 1.2 cm (0.6 - 1.1) IVSs: 1.6 cm LVIDs: 2.4 cm LVPWs: 1.6 cm LAESV Index (A-L): 17.35 ml/m Ao Diam: 2.7 cm (2.0 - 3.7) AV Cusp: 2.0 cm (1.5 - 2.6) LA Diam: 2.8 cm (2.7 - 3.8) EPSS: 0.7 cm AR PHT: 273 ms RAP: 5.00 mmHg RVSP: 23.80 mmHg MV EF SLOPE: 87.11 mm/s (70 - 150) MV EXCURSION: 1.18 cm (> 18.000) FINDINGS -------- Atrial fibrillation. This was a technically good study. The left ventricular size is normal. There is mild concentric left ventricular hypertrophy. Overa ll left ventricular systolic function is normal with, an EF between 55 - 60 %. The right ventricle is normal in size. Normal LA size by volume 22+/-6 ml/m2. The right atrial size is normal. Trace amount of aortic regurgitation. The mitral valve leaflets are mildly thickened. There is trace mitral regurgitation. Mild tricuspid regurgitation present. The right ventricular systolic pressure, as measured by Doppl er, is 23.80mmHg. There is no pulmonic regurgitation present. The aortic root size is normal. Normal inferior vena cava with normal inspiratory collapse consistent with estimated right atrial pre ssure of 5 mmHg. There is no pericardial effusion. CONCLUSIONS -------- 1. Atrial fibrillation. 2. This was a technically good study. 3. The left ventricular size is normal. 4. There is mild concentric left ventricular hypertrophy. 5. Overall left ventricular systolic function is normal with, an EF between 55 - 60 %. 6. The right ventricle is normal in size. 7. Normal LA size by volume 22+/-6 ml/m2. 8. The right atrial size is normal. 9. Trace amount of aortic regurgitation. 10. The mitral valve leaflets are mildly thickened. 11. There is trace mitral regurgitation. 12. Mild tricuspid regurgitation present. 13. The right ventricular systolic pressure, as measured by Doppler, is 23.80mmHg. 14. There is no pulmonic regurgitation present. 15. The aortic root size is normal. 16. Normal inferior vena cava with normal inspiratory collapse consistent with estimated right atrial pressure of 5 mmHg. 17. There is no pericardial effusion. [employer] PROFESSOR: Sharda Guadarrama RDCS
[2018-09-06] MEDS: VERAPAMIL SR 180 MG TABLET.ER PO SCH (11:15)
[2018-09-06 12:44] LABS: Glucose,Whole Blood 97 mg/dL (75-99)
--- NOTE | 2018-09-06 13:49 | P.CRDCN ---
History of Present Illness History of present illness: This is Dr. Branham dictating a consult on this patient The patient was interviewed and examined by me IMPRESSION / ASSESSMENT: Atrial fibrillation with RVR, first documented episode PLAN: Rate controlled with verapamil 180 mg by mouth daily and taper off IV Cardizem TSH levels drawn 2-D echo and Doppler study to assess cardiac structure and function pericardium Continue rate control and anticoagulation for atrial fibrillation HPI Cartilages consulted for atrial fibrillation with RVR Patient is being treated for a brain cancer with chemotherapy and radiation Her main complaints are shortness of breath. She was diagnosed with influenza A. She has a history of DVT in the left lower extremity that was diagnosed last month She is on anticoagulation ROS: No fever chills or rigors, no cough, phlegm or expectoration, no nausea, vomiting or diarrhea, no hematuria, dysuria, no musculoskeletal complaints, no strokes or seizures, no skin lesions. EXAMINATION: She is lying comfortably in bed mildly tachypneic Breath sounds are reduced bilaterally Heart sounds are irregular she is on IV Cardizem Abdomen soft Blood pressure 120/87 mmHg Afebrile REVIEW OF LABS, ECG & MEDICAL DATA Hemoglobin 12.8, potassium 3.4, sodium 140, BUN 12 and creatinine 0.5 2 normal troponins are normal TSH was ordered and is normal at 1.97 Past Medical History Past Medical History: Cancer, Deep Vein Thrombosis (DVT), Hyperlipidemia Additional Past Medical History / Comment(s): diverticulitis, brain cancer History of Any Multi-Drug Resistant Organisms: None Reported Past Surgical History: Ablation, Tonsillectomy Additional Past Surgical History / Comment(s): breast surgery, brain surgery Past Psychological History: No Psychological Hx Reported Smoking Status: Never smoker Past Alcohol Use History: Occasional Past Drug Use History: None Reported Medications and Allergies Home Medications Medication Instructions Recorded Confirmed Type Atorvastatin [Lipitor] 10 mg PO HS 05/18/17 09/06/18 History LORazepam [Ativan] 0.5 mg PO DIRECTED PRN 05/18/17 09/06/18 History Acetaminophen Tab [Tylenol Tab] 325 mg PO Q4H PRN 09/06/18 09/06/18 History Apixaban [Eliquis] 5 mg PO BID 09/06/18 09/06/18 History Oseltamivir [Tamiflu] 75 mg PO Q12HR 04/05/19 04/05/19 History Temozolomide [Temodar] 300 mg PO DIRECTED 09/06/18 09/06/18 History cycloSPORINE [Restasis] 1 applicator BOTH EYES BID 09/06/18 09/06/18 History Allergies Allergy/AdvReac Type Severity Reaction Status Date / Time cephalexin Allergy Rash/Hives Verified 09/06/18 08:13 Physical Exam Vitals: Vital Signs Temp Pulse Pulse Resp BP BP Pulse Ox 09/06/18 13:00 73 20 103/70 09/06/18 12:30 74 24 93/60 09/06/18 12:00 88 22 105/77 09/06/18 11:30 986 F H 77 20 108/69 09/06/18 11:00 82 23 120/87 09/06/18 10:30 96 24 09/06/18 10:00 111 H 13 115/73 94 L 09/06/18 09:30 89 21 94 L 09/06/18 09:00 83 20 112/72 93 L 09/06/18 08:30 97.7 F 89 20 96 09/06/18 08:09 87 12 94 L 09/06/18 06:34 97.4 F L 118 H 15 109/80 93 L 09/06/18 05:54 97.8 F 98 16 96/73 98 09/06/18 04:44 97 19 116/75 96 09/06/18 03:12 126 H 22 121/79 96 09/06/18 02:50 102 H 18 111/93 09/06/18 02:34 100 19 100/65 97 09/06/18 01:50 152 H 18 115/104 99 09/06/18 01:20 149 H 09/06/18 00:33 97.7 F 73 18 101/68 97 Intake and Output 09/05/18 09/06/18 09/06/18 22:59 06:59 14:59 Intake Total 6.25 91.234 Balance 6.25 91.234 Intake: Intake, IV Titration 6.25 91.234 Amount Diltiazem 125 mg In 6.25 91.234 Sodium Chloride 0.9% 100 ml @ Per Protocol IV .Q0M ESPERANZA Rx#:[id number] Other: # Voids 1 Weight 103.419 kg Results 09/06/18 01:40 09/06/18 01:40 Cardiac Enzymes 09/06/18 09/06/18 09/06/18 Range/Units 01:40 01:40 07:44 AST 21 (14-36) U/L Troponin I <0.012 <0.012 (0.000-0.034) ng/mL Coagulation 09/06/18 Range/Units 01:40 PT 9.8 (9.0-12.0) sec APTT 23.1 (22.0-30.0) sec CBC 09/06/18 Range/Units 01:40 WBC 3.5 L (3.8-10.6) k/uL RBC 4.17 (3.80-5.40) m/uL Hgb 12.8 (11.4-16.0) gm/dL Hct 38.4 (34.0-46.0) % Plt Count 201 (150-450) k/uL Comprehensive Metabolic Panel 09/06/18 Range/Units 01:40 Sodium 140 (137-145) mmol/L Potassium 3.4 L (3.5-5.1) mmol/L Chloride 109 H (98-107) mmol/L Carbon Dioxide 24 (22-30) mmol/L BUN 12 (7-17) mg/dL Creatinine 0.53 (0.52-1.04) mg/dL Glucose 119 H (74-99) mg/dL Calcium 9.0 (8.4-10.2) mg/dL AST 21 (14-36) U/L ALT 21 (9-52) U/L Alkaline Phosphatase 81 (38-126) U/L Total Protein 5.5 L (6.3-8.2) g/dL Albumin 3.0 L (3.5-5.0) g/dL Current Medications Generic Name Dose Route Start Last Admin Trade Name Freq PRN Reason Stop Dose Admin Acetaminophen 650 mg 09/06/18 05:37 Tylenol Tab PO Q6HR PRN Mild Pain or Fever > 100.5 Diltiazem HCl 125 mg/ Sodium 125 mls @ 0 mls/hr 09/06/18 01:30 09/06/18 12:55 Chloride IV 0 mls/hr .Q0M ESPERANZA 0 mls/hr Titration Protocol Per Protocol Ibuprofen 400 mg 09/06/18 05:37 Motrin PO Q6HR PRN Mild Pain or Fever > 100.5 Naloxone HCl 0.2 mg 09/06/18 04:46 Narcan IV Q2M PRN Opioid Reversal Verapamil HCl 180 mg 09/06/18 09:00 09/06/18 11:15 Isoptin Sr PO 180 mg DAILY ESPERANZA Administration Intake and Output 09/05/18 09/06/18 09/06/18 22:59 06:59 14:59 Intake Total 6.25 91.234 Balance 6.25 91.234 Intake: Intake, IV Titration 6.25 91.234 Amount Diltiazem 125 mg In 6.25 91.234 Sodium Chloride 0.9% 100 ml @ Per Protocol IV .Q0M ESPERANZA Rx#:[id number] Other: # Voids 1 Weight 103.419 kg 09/06/18 01:40 09/06/18 01:40
[2018-09-06] MEDS ORDERED: Potassium Replacement Protocol 1 EACH MISC MISCELLANE PRN (15:45)
[2018-09-06 16:11] LABS: Anisocytosis Slight; Basophils % (A) 0 %; Eosinophils # (A) 0.1 k/uL (0-0.7); Eosinophils % (A) 2 %; HCT 34.1 % (34.0-46.0); HGB 11.1 gm/dL (11.4-16.0); Hypochromasia Slight; Lymphocytes # (A) 0.8 k/uL (1.0-4.8); Lymphocytes % (A) 28 %; MCH 29.8 pg (25.0-35.0); MCHC 32.6 g/dL (31.0-37.0); MCV 91.2 fL (80.0-100.0); Mean Platelet Volume 9.5; Monocytes # (A) 0.3 k/uL (0-1.0); Monocytes % (A) 12 %; Neutrophils # (A) 1.6 k/uL (1.3-7.7); Neutrophils % (A) 55 %; Platelet Count 172 k/uL (150-450); RBC 3.74 m/uL (3.80-5.40); WBC 2.8 k/uL (3.8-10.6)
[2018-09-06] MEDS: PANTOPRAZOLE 40 MG/10 ML VIAL IVP SCH (16:28)
[2018-09-06] MEDS: POTASSIUM CHLORIDE ER 20 MEQ TAB.ER PO SCH ×2 (16:29→17:51)
[2018-09-06 18:01] LABS: Glucose,Whole Blood 140 mg/dL (75-99)
--- NOTE | 2018-09-06 20:44 | P.HPIM ---
History of Present Illness H&P Date: 09/06/18 Chief Complaint: Blood per rectum Patient is 68-year-old female with a known history of brain cancer treated with radiation and scheduled for chemotherapy, recent left lower extremity DVT diagnosed on 08/13/2018, currently on Eliquis, diagnosed with influenza A yesterday and is currently taking Tamiflu at home, hyperlipidemia, history of diverticulosis as per previous colonoscopy came to ER with complaints of bright red blood per rectum along with bowel movement since yesterday. Patient did have softer bowel movement yesterday and today evening and passed large amount of blood per rectum. Denied any history of previous GI bleeding. Patient does have shortness of breath on admission. No complaints of chest pain. No fever no chills. No nausea vomiting or diarrhea and abdominal pain. EKG on admission showed atrial fibrillation with rapid ventricular rate. Lamin mckenna does not have any history of atrial fibrillation. Hemoglobin 12.8. FOBT positive. TSH within normal limits. Chest x-ray showed no acute findings CT angiogram of the chest showed no evidence of pulmonary embolism. Unchanged 4mm solid pulmonary nodule in the right middle lobe. Review of Systems Constitutional: Patient denies any fever or chills . No generalized weakness or weight loss. Abdomen: Patient denied nausea vomiting and diarrhea and abdominal pain. Blood per rectum. Cardiovascular: Patient denies any chest pain or short of breath no palpitations. Respiratory: patient denied any cough is from production. No shortness of breath Neurologic: Patient denied any numbness or tingling headache. Musculoskeletal: Patient denies any complaints of joint swelling or deformity. Skin: Negative Psychiatric: Negative Endocrine: No heat or cold intolerance. No recent weight gain. Genitourinary: No dysuria or hematuria. All other 14 point ROS negative except the above Past Medical History Past Medical History: Cancer, Deep Vein Thrombosis (DVT), Hyperlipidemia Additional Past Medical History / Comment(s): diverticulitis, brain cancer History of Any Multi-Drug Resistant Organisms: None Reported Past Surgical History: Ablation, Tonsillectomy Additional Past Surgical History / Comment(s): breast surgery, brain surgery Past Psychological History: No Psychological Hx Reported Smoking Status: Never smoker Past Alcohol Use History: Occasional Past Drug Use History: None Reported Medications and Allergies Home Medications Medication Instructions Recorded Confirmed Type Atorvastatin [Lipitor] 10 mg PO HS 05/18/17 09/06/18 History LORazepam [Ativan] 0.5 mg PO DIRECTED PRN 05/18/17 09/06/18 History Acetaminophen Tab [Tylenol Tab] 325 mg PO Q4H PRN 09/06/18 09/06/18 History Apixaban [Eliquis] 5 mg PO BID 09/06/18 09/06/18 History Oseltamivir [Tamiflu] 75 mg PO Q12HR 09/06/18 09/06/18 History Temozolomide [Temodar] 300 mg PO DIRECTED 09/06/18 09/06/18 History cycloSPORINE [Restasis] 1 applicator BOTH EYES BID 09/06/18 09/06/18 History Allergies Allergy/AdvReac Type Severity Reaction Status Date / Time cephalexin Allergy Rash/Hives Verified 09/06/18 08:13 Physical Exam Vitals: Vital Signs Temp Pulse Pulse Resp BP BP Pulse Ox 09/06/18 11:00 82 23 120/87 09/06/18 10:30 96 24 09/06/18 10:00 111 H 13 115/73 94 L 09/06/18 09:30 89 21 94 L 09/06/18 09:00 83 20 112/72 93 L 09/06/18 08:30 97.7 F 89 20 96 09/06/18 08:09 87 12 94 L 09/06/18 06:34 97.4 F L 118 H 15 109/80 93 L 09/06/18 05:54 97.8 F 98 16 96/73 98 09/06/18 04:44 97 19 116/75 96 09/06/18 03:12 126 H 22 121/79 96 09/06/18 02:50 102 H 18 111/93 09/06/18 02:34 100 19 100/65 97 09/06/18 01:50 152 H 18 115/104 99 09/06/18 01:20 149 H 09/06/18 00:33 97.7 F 73 18 101/68 97 Intake and Output 09/05/18 09/06/18 09/06/18 22:59 06:59 14:59 Intake Total 6.25 82 Balance 6.25 82 Intake: Intake, IV Titration 6.25 82 Amount Diltiazem 125 mg In 6.25 82 Sodium Chloride 0.9% 100 ml @ Per Protocol IV .Q0M [facility] Rx#:[id number] Other: # Voids 325 Weight 103.419 kg PHYSICAL EXAMINATION: Patient is lying in the bed comfortably, no acute distress, awake alert and oriented.. HEENT: Normocephalic. Neck is supple. Pupils reactive. Nostrils clear. Oral cavity is moist. Ears reveal no drainage. Neck reveals no JVD, carotid bruits, or thyromegaly. CHEST EXAMINATION: Trachea is central. Symmetrical expansion. Lung simpson clear to auscultation and percussion. CARDIAC: Normal S1, S2 with no gallops. No murmurs . Irregularly irregular rhythm. ABDOMEN: Soft. Bowel sounds normal. No organomegaly. No abdominal bruits. Extremities: reveal no edema. No clubbing or cyanosis Neurologically awake, alert, oriented x3 with well-coordinated movements. No focal deficits noted Skin: No rash or skin lesions. Psychiatric: Coperative. Nonsuicidal Musculoskeletal: No joint swelling or deformity. Normal range of motion. Results CBC & Chem 7: 09/06/18 15:30 09/06/18 01:40 Labs: Abnormal Lab Results - Last 24 Hours (Table) 09/06/18 09/06/18 09/06/18 Range/Units 01:40 01:40 03:17 WBC 3.5 L (3.8-10.6) k/uL Lymphocytes # 0.8 L (1.0-4.8) k/uL Potassium 3.4 L (3.5-5.1) mmol/L Chloride 109 H (98-107) mmol/L Glucose 119 H (74-99) mg/dL Total Protein 5.5 L (6.3-8.2) g/dL Albumin 3.0 L (3.5-5.0) g/dL Stool Occult Blood Positive H (Negative) Thrombosis Risk Factor Assmnt - DVT/VTE Prophylaxis DVT/VTE Prophylaxis: Mechanical Prophylaxis ordered - Choose All That Apply Any of the Below Risk Factors Present?: Yes Each Factor Represents 1 point: Obesity (BMI >25) Other Risk Factors: Yes Each Risk Factor Represents 2 Points: Age 61-74 years, Malignancy Each Risk Factor Represents 3 Points: Family history of DVT/PE, History of DVT/PE Other congenital or acquired thrombophilia - If yes, enter type in comment: No Thrombosis Risk Factor Assessment Total Risk Factor Score: 11 Thrombosis Risk Factor Assessment Level: High Risk Assessment and Plan Assessment: New onset atrial fibrillation with rapid regular rate. Acute lower GI bleed. Likely diverticular bleed. Acute blood loss anemia. Recent left lower extremity DVT. Currently on Eliquis Influenza positive. Currently on Tamiflu Brain cancer treated with chemo and radiation History of diverticulosis Hyperlipidemia Plan: Patient was initially started on Cardizem drip. Currently started on oral verapamil 180 mg by mouth daily as per cardiology. TSH is within normal limits. 2-D echocardiogram was ordered. Patient will be continued on her home medications. Monitor H&H closely. Gastroenterology was consulted due to GI bleed. Anticoagulation has been held at this time due to GI bleed. Further recommendations based on the clinical course. Prognosis is guarded.
[2018-09-06] MEDS: ATORVASTATIN 10 MG TAB PO SCH (21:13)
[2018-09-06] MEDS: OSELTAMIVIR 75 MG CAP PO SCH (21:13)
[2018-09-06] MEDS: cycloSPORINE 0.05% OPHTH 0.4 ML DROPERETTE BOTH EYES SCH (21:14)
[2018-09-06 21:24] LABS: Glucose,Whole Blood 89 mg/dL (75-99)
[2018-09-07 06:27] LABS: Anisocytosis Slight; Basophils % (A) 0 %; Eosinophils # (A) 0.1 k/uL (0-0.7); Eosinophils % (A) 3 %; HCT 31.8 % (34.0-46.0); HGB 10.3 gm/dL (11.4-16.0); Hypochromasia Slight; Lymphocytes # (A) 0.6 k/uL (1.0-4.8); Lymphocytes % (A) 22 %; MCH 29.6 pg (25.0-35.0); MCHC 32.3 g/dL (31.0-37.0); MCV 91.7 fL (80.0-100.0); Mean Platelet Volume 9.7; Monocytes # (A) 0.3 k/uL (0-1.0); Monocytes % (A) 10 %; Neutrophils # (A) 1.7 k/uL (1.3-7.7); Neutrophils % (A) 62 %; Platelet Count 152 k/uL (150-450); RBC 3.46 m/uL (3.80-5.40); RDW 16.6 % (11.5-15.5); WBC 2.7 k/uL (3.8-10.6)
[2018-09-07 07:06] LABS: Anion Gap 4 mmol/L; Blood Urea Nitrogen 7 mg/dL (7-17); Calcium 8.4 mg/dL (8.4-10.2); Carbon Dioxide 27 mmol/L (22-30); Chloride 109 mmol/L (98-107); Glucose 90 mg/dL (74-99); Potassium 3.8 mmol/L (3.5-5.1); Sodium 140 mmol/L (137-145)
[2018-09-07] MEDS: PANTOPRAZOLE 40 MG/10 ML VIAL IVP SCH (09:21)
[2018-09-07] MEDS: OSELTAMIVIR 75 MG CAP PO SCH ×2 (09:22→21:45)
[2018-09-07] MEDS: cycloSPORINE 0.05% OPHTH 0.4 ML DROPERETTE BOTH EYES SCH ×2 (09:23→21:45)
[2018-09-07] MEDS: VERAPAMIL SR 120 MG TABLET.ER PO SCH (10:53)
--- NOTE | 2018-09-07 11:42 | P.PN ---
Subjective Patient is doing very well. Yesterday she converted to sinus rhythm. I treated her with verapamil 180 mg by mouth daily for rate control but that didn't seem to drop blood pressure so this morning we'll reduce the dose to 120 mg by mouth daily She has no chest discomfort dizziness lightheadedness palpitations She looks very comfortable Breath sounds are clear no rhonchi no crackles Heart sounds S1 and S2 are normal no murmurs or gallop. Abdomen soft Extremity is warm no edema Labs are reviewed hemoglobin 10.3, potassium 3.8 renal function normal troponin is normal Impression Paroxysmal atrial fibrillation with RVR Patient already anticoagulated with ELIQUIS that this is on hold until GI clearance is obtained Suggest Continue verapamil at a lower dose of 120 mg by mouth daily along with ELIQUIS in the long run Objective - Vital Signs Vital signs: Vital Signs Temp 98.7 F 09/07/18 08:00 Pulse 68 09/07/18 10:55 Resp 14 09/07/18 10:00 BP 125/72 09/07/18 10:55 Pulse Ox 97 09/07/18 10:00 Intake & Output 09/06/18 09/07/18 09/07/18 18:59 06:59 18:59 Intake Total 91.234 Balance 91.234 Intake: Intake, IV Titration 91.234 Amount Diltiazem 125 mg In 91.234 Sodium Chloride 0.9% 100 ml @ Per Protocol IV .Q0M [facility] Rx#:[id number] Other: Voiding Method Bedside Commode Bedside Commode Bedside Commode # Voids 0 1 - Labs CBC & Chem 7: 09/07/18 05:09 09/07/18 05:09 Labs: Abnormal Lab Results - Last 24 Hours (Table) 09/06/18 09/06/18 09/07/18 Range/Units 15:30 17:50 05:09 WBC 2.8 L 2.7 L (3.8-10.6) k/uL RBC 3.74 L 3.46 L (3.80-5.40) m/uL Hgb 11.1 L 10.3 L (11.4-16.0) gm/dL Hct 31.8 L (34.0-46.0) % RDW 16.0 H 16.6 H (11.5-15.5) % Lymphocytes # 0.8 L 0.6 L (1.0-4.8) k/uL Chloride (98-107) mmol/L Creatinine (0.52-1.04) mg/dL POC Glucose (mg/dL) 140 H (75-99) mg/dL 09/07/18 Range/Units 05:09 WBC (3.8-10.6) k/uL RBC (3.80-5.40) m/uL Hgb (11.4-16.0) gm/dL Hct (34.0-46.0) % RDW (11.5-15.5) % Lymphocytes # (1.0-4.8) k/uL Chloride 109 H (98-107) mmol/L Creatinine 0.50 L (0.52-1.04) mg/dL POC Glucose (mg/dL) (75-99) mg/dL
[2018-09-07] MEDS ORDERED: POTASSIUM CHLORIDE ER 20 MEQ TAB.ER PO STA (16:37)
[2018-09-07] MEDS: ATORVASTATIN 10 MG TAB PO SCH (21:45)
--- NOTE | 2018-09-08 00:41 | P.PN ---
Subjective Progress Note Date: 09/07/18 Principal diagnosis: Acute GI bleed Atrial fibrillation with rapid ventricular rate Patient is 68-year-old female with a known history of brain cancer treated with radiation and scheduled for chemotherapy, recent left lower extremity DVT diagnosed on 08/13/2018, currently on Eliquis, diagnosed with influenza A yesterday and is currently taking Tamiflu at home, hyperlipidemia, history of diverticulosis as per previous colonoscopy came to ER with complaints of bright red blood per rectum along with bowel movement since yesterday. Patient did have softer bowel movement yesterday and today evening and passed large amount of blood per rectum. Denied any history of previous GI bleeding. Patient does have shortness of breath on admission. No complaints of chest pain. No fever no chills. No nausea vomiting or diarrhea and abdominal pain. EKG on admission showed atrial fibrillation with rapid ventricular rate. Patient does not have any history of atrial fibrillation. Hemoglobin 12.8. FOBT positive. TSH within normal limits. Chest x-ray showed no acute findings CT angiogram of the chest showed no evidence of pulmonary embolism. Unchanged 4mm solid pulmonary nodule in the right middle lobe. 09/07/2018 Patient denied any complaints of chest pain or shortness of breath. Currently patient is in sinus rhythm. No further episodes of blood in the stools. Hemog lobin is 10.3, dropped from 11.1 yesterday.. Elevating GI clearance for restarting anticoagulation. No headache or dizziness or lightheadedness. Patient is being monitored in the ICU. Current medications reviewed. Objective - Vital Signs Vital signs: Vital Signs Temp 97.6 F 09/07/18 16:00 Pulse 72 09/07/18 18:00 Resp 24 09/07/18 19:00 BP 108/64 09/07/18 19:00 Pulse Ox 93 L 09/07/18 19:00 Intake & Output 09/07/18 09/07/18 09/08/18 06:59 18:59 06:59 Other: Voiding Method Bedside Commode Bedside Commode # Voids 1 2 - Exam PHYSICAL EXAMINATION: Patient is lying in the bed comfortably, no acute distress, awake alert and oriented.. HEENT: Normocephalic. Neck is supple. Pupils reactive. Nostrils clear. Oral cavity is moist. Ears reveal no drainage. Neck reveals no JVD, carotid bruits, or thyromegaly. CHEST EXAMINATION: Trachea is central. Symmetrical expansion. Lung simpson clear to auscultation and percussion. CARDIAC: Normal S1, S2 with no gallops. No murmurs ABDOMEN: Soft. Bowel sounds normal. No organomegaly. No abdominal bruits. Extremities: reveal no edema. No clubbing or cyanosis Neurologically awake, alert, oriented x3 with well-coordinated movements. No focal deficits noted Skin: No rash or skin lesions. Psychiatric: Coperative. Nonsuicidal Musculoskeletal: No joint swelling or deformity. Normal range of motion. - Labs CBC & Chem 7: 09/07/18 05:09 09/07/18 05:09 Labs: Abnormal Lab Results - Last 24 Hours (Table) 09/07/18 09/07/18 Range/Units 05:09 05:09 WBC 2.7 L (3.8-10.6) k/uL RBC 3.46 L (3.80-5.40) m/uL Hgb 10.3 L (11.4-16.0) gm/dL Hct 31.8 L (34.0-46.0) % RDW 16.6 H (11.5-15.5) % Lymphocytes # 0.6 L (1.0-4.8) k/uL Chloride 109 H (98-107) mmol/L Creatinine 0.50 L (0.52-1.04) mg/dL Assessment and Plan Assessment: New onset atrial fibrillation with rapid regular rate. Converted to sinus rhythm now. Acute lower GI bleed. Likely diverticular bleed. Acute blood loss anemia. Recent left lower extremity DVT. Currently on Eliquis Influenza positive. Currently on Tamiflu Brain cancer treated with chemo and radiation History of diverticulosis Hyperlipidemia Plan: Patient was initially started on Cardizem drip. Currently started on oral verapamil 180 mg by mouth daily as per cardiology. TSH is within normal limits. 2-D echocardiogram was ordered. Patient will be continued on her home medications. Monitor H&H closely. Gastroenterology was consulted due to GI bleed. Anticoagulation has been held at this time due to GI bleed. Further recommendations based on the clinical course. Prognosis is guarded. Time with Patient: Greater than 30
[2018-09-08 07:24] LABS: Anisocytosis Slight; HCT 31.3 % (34.0-46.0); HGB 10.8 gm/dL (11.4-16.0); MCH 30.8 pg (25.0-35.0); MCHC 34.4 g/dL (31.0-37.0); MCV 89.6 fL (80.0-100.0); Mean Platelet Volume 9.9; Platelet Count 162 k/uL (150-450); RBC 3.49 m/uL (3.80-5.40); RDW 16.8 % (11.5-15.5); WBC 2.2 k/uL (3.8-10.6)
[2018-09-08 07:32] LABS: Anion Gap 4 mmol/L; Blood Urea Nitrogen 6 mg/dL (7-17); Calcium 8.7 mg/dL (8.4-10.2); Carbon Dioxide 27 mmol/L (22-30); Chloride 110 mmol/L (98-107); Glucose 89 mg/dL (74-99); Potassium 3.9 mmol/L (3.5-5.1); Sodium 141 mmol/L (137-145)
[2018-09-08] MEDS: PANTOPRAZOLE 40 MG/10 ML VIAL IVP SCH (09:13)
[2018-09-08] MEDS: HEPARIN SODIUM,PORCINE 5,000 UNIT/ML 1 ML VIAL SQ SCH ×2 (09:13→16:10)
[2018-09-08] MEDS: OSELTAMIVIR 75 MG CAP PO SCH ×2 (09:28→20:23)
[2018-09-08] MEDS: cycloSPORINE 0.05% OPHTH 0.4 ML DROPERETTE BOTH EYES SCH ×2 (09:29→20:29)
[2018-09-08] MEDS: VERAPAMIL SR 120 MG TABLET.ER PO SCH (09:29)
--- NOTE | 2018-09-08 12:38 | P.CRDCN ---
History of Present Illness History of present illness: Patient is a 68-year-old female with paroxysmal A. fib with RVR. She is doing well from a cardiac standpoint. She continues to maintain sinus rhythm. Vital signs are stable on verapamil 120 mg daily. Patient denies any chest discomfort, palpitations, dizziness, or lightheadedness. She is resting comfortably in bed. GENERAL: Well-appearing, well-nourished and in no acute distress. NECK: Supple without JVD or thyromegaly. LUNGS: Breath sounds clear to auscultation bilaterally. Respiration equal and unlabored. No wheezes, rales or rhonchi. HEART: Regular rate and rhythm without murmurs, rubs or gallops. S1 and S2 heard. EXTREMITIES: Normal range of motion, no edema. No clubbing or cyanosis. Peripheral pulses intact and strong. Assessment: Paroxysmal atrial fibrillation with RVR, maintaining sinus rhythm, on novel anticoagulation DVT, on novel anticoagulation Hyperlipidemia, on atorvastatin Plan: We will continue current medication regimen, including Eliquis. Please contact for any further recommendations Past Medical History Past Medical History: Cancer, Deep Vein Thrombosis (DVT), Hyperlipidemia Additional Past Medical History / Comment(s): diverticulitis, brain cancer History of Any Multi-Drug Resistant Organisms: None Reported Past Surgical History: Ablation, Tonsillectomy Additional Past Surgical History / Comment(s): breast surgery, brain surgery Past Psychological History: No Psychological Hx Reported Smoking Status: Never smoker Past Alcohol Use History: Occasional Past Drug Use History: None Reported Medications and Allergies Home Medications Medication Instructions Recorded Confirmed Type Atorvastatin [Lipitor] 10 mg PO HS 05/18/17 09/06/18 History LORazepam [Ativan] 0.5 mg PO DIRECTED PRN 05/18/17 09/06/18 History Acetaminophen Tab [Tylenol Tab] 325 mg PO Q4H PRN 09/06/18 09/06/18 History Apixaban [Eliquis] 5 mg PO BID 09/06/18 09/06/18 History Oseltamivir [Tamiflu] 75 mg PO Q12HR 09/06/18 09/06/18 History Temozolomide [Temodar] 300 mg PO DIRECTED 09/06/18 09/06/18 History cycloSPORINE [Restasis] 1 applicator BOTH EYES BID 09/06/18 09/06/18 History Allergies Allergy/AdvReac Type Severity Reaction Status Date / Time cephalexin Allergy Rash/Hives Verified 09/06/18 08:13 Physical Exam Vitals: Vital Signs Temp Pulse Pulse Resp BP Pulse Ox 09/08/18 11:00 82 09/08/18 10:00 82 23 09/08/18 09:00 98.0 F 73 30 H 120/63 93 L 09/08/18 08:00 80 26 H 93/63 94 L 09/08/18 07:00 71 30 H 93/63 94 L 09/08/18 06:00 64 30 H 120/63 91 L 09/08/18 05:00 66 26 H 120/63 90 L 09/08/18 04:00 72 26 H 92 L 09/08/18 03:00 67 22 91 L 09/08/18 02:00 66 25 H 110/89 94 L 09/08/18 01:00 72 24 110/89 92 L 09/08/18 00:08 73 25 H 110/89 93 L 09/08/18 00:00 97.8 F 26 H 122/69 94 L 09/07/18 23:00 72 31 H 122/69 93 L 09/07/18 22:00 73 31 H 111/59 92 L 09/07/18 21:00 73 30 H 111/59 93 L 09/07/18 20:00 28 H 108/64 92 L 09/07/18 19:00 24 108/64 93 L 09/07/18 18:00 72 23 105/73 96 09/07/18 17:00 67 20 105/73 93 L 09/07/18 16:00 97.6 F 71 68 20 99/67 94 L 09/07/18 15:00 73 18 100/65 94 L 09/07/18 14:00 76 18 114/66 94 L 09/07/18 13:00 78 25 H 114/66 95 Intake and Output 09/07/18 09/08/18 09/08/18 22:59 06:59 14:59 Other: Voiding Method Bedside Commode Bedside Commode # Voids 1 # Bowel Movements 1 Results 09/08/18 06:58 09/08/18 06:58 CBC 09/08/18 Range/Units 06:58 WBC 2.2 L (3.8-10.6) k/uL RBC 3.49 L (3.80-5.40) m/uL Hgb 10.8 L (11.4-16.0) gm/dL Hct 31.3 L (34.0-46.0) % Plt Count 162 (150-450) k/uL Comprehensive Metabolic Panel 09/08/18 Range/Units 06:58 Sodium 141 (137-145) mmol/L Potassium 3.9 (3.5-5.1) mmol/L Chloride 110 H (98-107) mmol/L Carbon Dioxide 27 (22-30) mmol/L BUN 6 L (7-17) mg/dL Creatinine 0.50 L (0.52-1.04) mg/dL Glucose 89 (74-99) mg/dL Calcium 8.7 (8.4-10.2) mg/dL Current Medications Generic Name Dose Route Start Last Admin Trade Name Freq PRN Reason Stop Dose Admin Acetaminophen 650 mg 09/06/18 05:37 Tylenol Tab PO Q6HR PRN Mild Pain or Fever > 100.5 Atorvastatin Calcium 10 mg 09/06/18 21:00 09/07/18 21:45 Lipitor PO 10 mg HS ESPERANZA Administration Cyclosporine 1 drops 09/06/18 21:00 09/08/18 09:29 Restasis 0.05% Ophth Soln BOTH EYES 1 drops BID ESPERANZA Administration Heparin Sodium (Porcine) 5,000 unit 09/08/18 08:00 09/08/18 09:13 Heparin SQ 5,000 unit Q8HR ESPERANZA Administration Diltiazem HCl 125 mg/ Sodium 125 mls @ 0 mls/hr 09/06/18 01:30 09/06/18 12:55 Chloride IV 0 mls/hr .Q0M ESPERANZA 0 mls/hr Titration Protocol Per Protocol Ibuprofen 400 mg 09/06/18 05:37 Motrin PO Q6HR PRN Mild Pain or Fever > 100.5 Miscellaneous Information 1 each 09/06/18 15:45 Potassium Per Protocol MISCELLANE DAILY PRN Per Protocol Protocol Naloxone HCl 0.2 mg 09/06/18 04:46 Narcan IV Q2M PRN Opioid Reversal Oseltamivir Phosphate 75 mg 09/06/18 21:00 09/08/18 09:28 Tamiflu PO 75 mg Q12HR ESPERANZA Administration Pantoprazole Sodium 40 mg 09/06/18 15:15 09/08/18 09:13 Protonix IVP 40 mg DAILY ESPERANZA Administration Verapamil HCl 120 mg 09/07/18 10:00 09/08/18 09:29 Isoptin Sr PO 120 mg DAILY ESPERANZA Administration Intake and Output 09/07/18 09/08/18 09/08/18 22:59 06:59 14:59 Other: Voiding Method Bedside Commode Bedside Commode # Voids 1 # Bowel Movements 1 09/08/18 06:58 09/08/18 06:58
--- NOTE | 2018-09-08 15:42 | P.CONS ---
History of Present Illness - Reason for Consult Consult date: 09/07/18 GI bleeding - History of Present Illness The patient is a 68-year-old female with a known history of brain cancer treated with radiation and scheduled for chemotherapy, recent left lower extremity DVT diagnosed on 08/13/2018, currently on Eliquis, diagnosed with influenza A the day prior to admission currently taking Tamiflu at home, hyperlipidemia, history of diverticulosis as per previous colonoscopy came to ER with complaints of bright red blood per rectum that started after multiple bowel movements at home. This has improved after admission and today she reports passing normal colored BM. Denied any history of previous GI bleeding. Patient does have shortness of breath on admission. No complaints of chest pain. No fever no chills. No nausea vomiting or diarrhea and abdominal pain. The patient was found to have paroxysmal AFib with rapid ventricular response. Cardiology is following and would like to restart antiplatelets based on our recommendations. Chest x-ray showed no acute findings CT angiogram of the chest showed no evidence of pulmonary embolism. Unchanged 4mm solid pulmonary nodule in the right middle lobe. Review of Systems CONSTITUTIONAL: Denies any fevers, chills, weight change or fatigue. CARDIOVASCULAR: Denies any chest pain, palpitations high or low blood pressures RESPIRATORY: Denies any shortness of breath, hemoptysis or cough. GENITOURINARY: No dysuria or hematuria. MUSCULOSKELETAL: No weakness reported. SKIN: Denies any new rashes or lesions, jaundice or pallor. PSYCHIATRIC: Denies any depression or anxiety. NEUROLOGY: Denies headache, denies any new focal deficits. EARS/NOSE/THROAT: No recent hearing change, congestion, nasal discharge or sore throat. EYES: No pain in eyes, discharge or change in vision. GASTROINTESTINAL: As per HPI. Past Medical History Past Medical History: Cancer, Deep Vein Thrombosis (DVT), Hyperlipidemia Additional Past Medical History / Comment(s): diverticulitis, brain cancer History of Any Multi-Drug Resistant Organisms: None Reported Past Surgical History: Ablation, Tonsillectomy Additional Past Surgical History / Comment(s): breast surgery, brain surgery Past Psychological History: No Psychological Hx Reported Smoking Status: Never smoker Past Alcohol Use History: Occasional Past Drug Use History: None Reported Medications and Allergies Home Medications Medication Instructions Recorded Confirmed Type Atorvastatin [Lipitor] 10 mg PO HS 05/18/17 09/06/18 History LORazepam [Ativan] 0.5 mg PO DIRECTED PRN 05/18/17 09/06/18 History Acetaminophen Tab [Tylenol Tab] 325 mg PO Q4H PRN 09/06/18 09/06/18 History Apixaban [Eliquis] 5 mg PO BID 09/06/18 09/06/18 History Oseltamivir [Tamiflu] 75 mg PO Q12HR 09/06/18 09/06/18 History Temozolomide [Temodar] 300 mg PO DIRECTED 09/06/18 09/06/18 History cycloSPORINE [Restasis] 1 applicator BOTH EYES BID 09/06/18 09/06/18 History Allergies Allergy/AdvReac Type Severity Reaction Status Date / Time cephalexin Allergy Rash/Hives Verified 09/06/18 08:13 Physical Exam Vitals: Vital Signs Temp Pulse Pulse Resp BP BP Pulse Ox 09/07/18 10:55 68 125/72 09/07/18 10:00 70 14 105/61 97 09/07/18 09:00 68 19 109/66 97 09/07/18 08:12 65 14 09/07/18 08:00 98.7 F 67 65 17 118/64 109/66 96 09/07/18 07:00 65 17 118/64 97 09/07/18 06:00 64 18 97 09/07/18 05:00 60 17 95 09/07/18 04:00 98.4 F 70 18 121/65 96 09/07/18 03:00 65 17 96 09/07/18 02:00 69 16 118/64 96 09/07/18 01:00 69 22 118/64 98 09/07/18 00:09 71 21 118/64 92 L 09/07/18 00:00 73 20 105/59 96 09/06/18 23:00 67 18 97 09/06/18 22:00 73 22 109/69 97 09/06/18 21:45 91 L 09/06/18 21:00 79 23 109/69 94 L 09/06/18 20:00 98.4 F 77 21 108/72 95 09/06/18 19:00 68 23 99/74 09/06/18 18:30 67 20 103/67 09/06/18 18:00 70 20 103/67 09/06/18 17:30 86 19 104/71 09/06/18 17:00 72 23 106/79 09/06/18 16:30 11 L 113/72 09/06/18 16:06 87 19 09/06/18 16:00 97.5 F L 75 20 113/72 96 09/06/18 15:30 75 19 95/73 95 09/06/18 15:00 64 18 98/71 09/06/18 14:30 64 16 116/53 09/06/18 14:00 76 21 97/66 09/06/18 13:30 78 22 103/70 09/06/18 13:00 73 20 103/70 09/06/18 12:30 74 24 93/60 Intake and Output 09/06/18 09/07/18 09/07/18 22:59 06:59 14:59 Other: Voiding Method Bedside Commode Bedside Commode Bedside Commode # Voids 1 1 On physical examination, patient appears very pleasant, stated age in no apparent distress. HEAD: Normocephalic, atraumatic. EYES: No scleral icterus. No conjunctival injection. MOUTH: No lesions, tongue midline. NECK: Trachea midline, no gross abnormalities. CHEST: Clear to auscultation with no wheezing or rhonchi appreciated. HEART: Irregular, no abnormal solids, murmurs, gallops or friction rubs. ABDOMEN: Soft. Bowel sounds are positive. No organomegaly. No guarding or rigidity. EXTREMITIES: No pedal edema. SKIN: No rashes, no jaundice. NEUROLOGIC: Alert and oriented. No focal deficits. Results CBC & Chem 7: 09/08/18 06:58 09/08/18 06:58 Labs: Abnormal Lab Results - Last 24 Hours (Table) 09/06/18 09/06/18 09/07/18 Range/Units 15:30 17:50 05:09 WBC 2.8 L 2.7 L (3.8-10.6) k/uL RBC 3.74 L 3.46 L (3.80-5.40) m/uL Hgb 11.1 L 10.3 L (11.4-16.0) gm/dL Hct 31.8 L (34.0-46.0) % RDW 16.0 H 16.6 H (11.5-15.5) % Lymphocytes # 0.8 L 0.6 L (1.0-4.8) k/uL Chloride (98-107) mmol/L Creatinine (0.52-1.04) mg/dL POC Glucose (mg/dL) 140 H (75-99) mg/dL 09/07/18 Range/Units 05:09 WBC (3.8-10.6) k/uL RBC (3.80-5.40) m/uL Hgb (11.4-16.0) gm/dL Hct (34.0-46.0) % RDW (11.5-15.5) % Lymphocytes # (1.0-4.8) k/uL Chloride 109 H (98-107) mmol/L Creatinine 0.50 L (0.52-1.04) mg/dL POC Glucose (mg/dL) (75-99) mg/dL Assessment and Plan Assessment: Rectal bleeding likely perianal sourse secondary to frequent BM while on radha lea. Doubt colitis or neoplasia with the quick resolution of bleeding. Plan: Agree with current management. Since no further bleeding and stable Hb with recommend resuming antiplatelet therapy.
[2018-09-08] MEDS: VERAPAMIL SR 180 MG TABLET.ER PO SCH (16:52)
[2018-09-08] MEDS: ATORVASTATIN 10 MG TAB PO SCH (20:22)
[2018-09-08] MEDS: APIXABAN 5 MG TAB PO SCH (20:22)
--- NOTE | 2018-09-09 00:03 | P.PN ---
Subjective Progress Note Date: 09/08/18 Principal diagnosis: Acute GI bleed Atrial fibrillation with rapid ventricular rate Patient is 68-year-old female with a known history of brain cancer treated with radiation and scheduled for chemotherapy, recent left lower extremity DVT diagnosed on 08/13/2018, currently on Eliquis, diagnosed with influenza A yesterday and is currently taking Tamiflu at home, hyperlipidemia, history of diverticulosis as per previous colonoscopy came to ER with complaints of bright red blood per rectum along with bowel movement since yesterday. Patient did have softer bowel movement yesterday and today evening and passed large amount of blood per rectum. Denied any history of previous GI bleeding. Patient does have shortness of breath on admission. No complaints of chest pain. No fever no chills. No nausea vomiting or diarrhea and abdominal pain. EKG on admission showed atrial fibrillation with rapid ventricular rate. Patient does not have any history of atrial fibrillation. Hemoglobin 12.8. FOBT positive. TSH within normal limits. Chest x-ray showed no acute findings CT angiogram of the chest showed no evidence of pulmonary embolism. Unchanged 4mm solid pulmonary nodule in the right middle lobe. 09/07/2018 Patient denied any complaints of chest pain or shortness of breath. Currently patient is in sinus rhythm. No further episodes of blood in the stools. Hemog lobin is 10.3, dropped from 11.1 yesterday.. Elevating GI clearance for restarting anticoagulation. No headache or dizziness or lightheadedness. Patient is being monitored in the ICU. 09/08/2018 Patient denied any compressive chest pain or short of breath. Maintaining sinus rhythm. Hemoglobin is fairly stable. Started back on Antivert was with Eliquis. Patient is being transferred to medical floor today. Continue to monitor H&H. No episodes of active bleeding. Current medications reviewed. Objective - Vital Signs Vital signs: Vital Signs Temp 97.8 F 09/08/18 16:00 Pulse 86 09/08/18 16:00 Resp 25 H 09/08/18 16:00 BP 148/96 09/08/18 16:00 Pulse Ox 94 L 09/08/18 16:00 Intake & Output 09/08/18 09/08/18 09/09/18 06:59 18:59 06:59 Intake Total 240 Balance 240 Intake: Oral 240 Other: Voiding Method Bedside Commode Bedside Commode # Voids 1 1 # Bowel Movements 1 1 - Exam PHYSICAL EXAMINATION: Patient is lying in the bed comfortably, no acute distress, awake alert and oriented.. HEENT: Normocephalic. Neck is supple. Pupils reactive. Nostrils clear. Oral cavity is moist. Ears reveal no drainage. Neck reveals no JVD, carotid bruits, or thyromegaly. CHEST EXAMINATION: Trachea is central. Symmetrical expansion. Lung simpson clear to auscultation and percussion. CARDIAC: Normal S1, S2 with no gallops. No murmurs ABDOMEN: Soft. Bowel sounds normal. No organomegaly. No abdominal bruits. Extremities: reveal no edema. No clubbing or cyanosis Neurologically awake, alert, oriented x3 with well-coordinated movements. No focal deficits noted Skin: No rash or skin lesions. Psychiatric: Coperative. Nonsuicidal Musculoskeletal: No joint swelling or deformity. Normal range of motion. - Labs CBC & Chem 7: 09/08/18 06:58 09/08/18 06:58 Labs: Abnormal Lab Results - Last 24 Hours (Table) 09/08/18 09/08/18 Range/Units 06:58 06:58 WBC 2.2 L (3.8-10.6) k/uL RBC 3.49 L (3.80-5.40) m/uL Hgb 10.8 L (11.4-16.0) gm/dL Hct 31.3 L (34.0-46.0) % RDW 16.8 H (11.5-15.5) % Chloride 110 H (98-107) mmol/L BUN 6 L (7-17) mg/dL Creatinine 0.50 L (0.52-1.04) mg/dL Assessment and Plan Assessment: New onset atrial fibrillation with rapid regular rate. Converted to sinus rhythm now. Acute lower GI bleed. Likely diverticular bleed. Acute blood loss anemia. Recent left lower extremity DVT. Currently on Eliquis Influenza positive. Currently on Tamiflu Brain cancer treated with chemo and radiation History of diverticulosis Hyperlipidemia Plan: Patient was initially started on Cardizem drip. Currently started on oral verapamil 180 mg by mouth daily as per cardiology. TSH is within normal limits. 2-D echocardiogram was ordered. Patient will be continued on her home medications. Monitor H&H closely. Gastroenterology was consulted due to GI bleed. Anticoagulation has been started at this time.. Further recommendations based on the clinical course. Prognosis is guarded. Time with Patient: Greater than 30
[2018-09-09 06:56] LABS: Basophils % (A) 0 %; Eosinophils # (A) 0.1 k/uL (0-0.7); Eosinophils % (A) 2 %; HCT 33.2 % (34.0-46.0); HGB 10.8 gm/dL (11.4-16.0); Lymphocytes # (A) 0.8 k/uL (1.0-4.8); Lymphocytes % (A) 26 %; MCH 30.2 pg (25.0-35.0); MCHC 32.6 g/dL (31.0-37.0); MCV 92.7 fL (80.0-100.0); Mean Platelet Volume 7.2; Monocytes # (A) 0.3 k/uL (0-1.0); Monocytes % (A) 10 %; Neutrophils # (A) 1.8 k/uL (1.3-7.7); Neutrophils % (A) 60 %; Platelet Count 169 k/uL (150-450); RBC 3.58 m/uL (3.80-5.40); RDW 14.8 % (11.5-15.5)
[2018-09-09] MEDS: APIXABAN 5 MG TAB PO SCH (09:14)
[2018-09-09] MEDS: VERAPAMIL SR 120 MG TABLET.ER PO SCH (09:14)
[2018-09-09] MEDS: PANTOPRAZOLE 40 MG/10 ML VIAL IVP SCH (09:14)
[2018-09-09] MEDS: OSELTAMIVIR 75 MG CAP PO SCH (09:14)
[2018-09-09] MEDS: cycloSPORINE 0.05% OPHTH 0.4 ML DROPERETTE BOTH EYES SCH (09:15)
[2018-09-09 11:44] VITALS: RESP 16; TEMP 98.2
[2018-09-09 15:40] VITALS: BP 103/70; PULSE 94
--- NOTE | 2018-09-09 19:59 | P.PN ---
Subjective Patient examined this morning Doing very well. Lying comfortably in bed no chest discomfort dizziness lightheadedness or palpitations Rhythm is regular Heart sounds are normal and regular Breath sounds are clear no rhonchi no crackles Abdomen is soft nontender Extremity warm edema Normal S1 normal S2 Vitals stable blood pressure 136/73 mmHg pulse rate in the 80s, afebrile Impression Paroxysmal atrial fibrillation back in sinus rhythm Tolerating low-dose verapamil Suggest Continue current medications continue anticoagulation for stroke prevention Please call us as needed. Objective - Vital Signs Vital signs: Vital Signs Temp 98.2 F 09/09/18 15:39 Pulse 94 09/09/18 15:39 Resp 16 09/09/18 15:39 BP 103/70 09/09/18 15:39 Pulse Ox 96 09/09/18 15:39 Intake & Output 09/09/18 09/09/18 09/10/18 06:59 18:59 06:59 Intake Total 720 Balance 720 Weight 99.6 kg Intake: Oral 720 Other: Voiding Method Bedside Commode Toilet # Voids 1 1 - Labs CBC & Chem 7: 09/09/18 06:20 09/08/18 06:58 Labs: Abnormal Lab Results - Last 24 Hours (Table) 09/09/18 Range/Units 06:20 WBC 3.0 L (3.8-10.6) k/uL RBC 3.58 L (3.80-5.40) m/uL Hgb 10.8 L (11.4-16.0) gm/dL Hct 33.2 L (34.0-46.0) % Lymphocytes # 0.8 L (1.0-4.8) k/uL
== END 2018-09-09 16:36 | disposition home or self-care (01) | DRG 308 ==
LOC: EC 00:22 → 2SICU 04:46 → 3SCARD 09-08 16:41
PROVIDERS: ADMIT Internal Medicine; ATTEND Internal Medicine
DX: I48.0 Paroxysmal atrial fibrillation (principal); K57.91 Diverticulosis of intestine, part unspecified, without perforation or abscess with bleeding; D62 Acute posthemorrhagic anemia; C71.9 Malignant neoplasm of brain, unspecified; I95.9 Hypotension, unspecified; J10.89 Influenza due to other identified influenza virus with other manifestations; E78.5 Hyperlipidemia, unspecified; R91.1 Solitary pulmonary nodule; Z79.01 Long term (current) use of anticoagulants; Z79.899 Other long term (current) drug therapy; Z86.718 Personal history of other venous thrombosis and embolism; Z92.3 Personal history of irradiation; Z92.21 Personal history of antineoplastic chemotherapy; Z88.1 Allergy status to other antibiotic agents
CPT/HCPCS: 36415; 71046; 71275; 80048; 80053; 82272; 83735; 83880; 84443; 84484; 85025; 85027; 85610; 85730; 93005; 93306; 96365; 96366; 96376; 99291

== ENCOUNTER → 2019-03-10 | Outpatient (CLI) | payer MEDICARE ==
--- NOTE | 2019-03-11 10:17 | MM ---
Reason for exam: screening (asymptomatic). Last mammogram was performed 1 year and 8 months ago. History: Patient is postmenopausal, has history of other cancer at age 68, and is nulliparous. Benign excisional biopsy of both breasts, 1970. Took estrogen for 2 years. Took progesterone for 2 years. Physical Findings: A clinical breast exam by your physician is recommended on an annual basis and results should be correlated with mammographic findings. MG 3D Screening Mammo W/Cad Bilateral CC and MLO view(s) were taken. Prior study comparison: June 29, 2017, bilateral MG 3d screening mammo w/cad. May 12, 2016, mammogram, performed at [facility]. The breast tissue is heterogeneously dense. This may lower the sensitivity of mammography. No suspicious abnormality. No significant changes when compared with prior studies. ASSESSMENT: Negative, BI-RAD 1 RECOMMENDATION: Routine screening mammogram of both breasts in 1 year.
== END | disposition home or self-care (01) ==
LOC: RADMAMWWP 10:51
PROVIDERS: ATTEND Family Medicine
DX: Z12.31 Encounter for screening mammogram for malignant neoplasm of breast (principal)
CPT/HCPCS: 77063; 77067

== ENCOUNTER 2019-03-30 18:24 | Emergency (ER) | payer MEDICARE ==
[2019-03-30 18:44] VITALS: RESP 18; TEMP 97.6
[2019-03-30] MEDS ORDERED: FAMOTIDINE 20 MG TAB PO STA (19:25)
--- NOTE | 2019-03-30 19:26 | ED ---
General Adult HPI - General Chief complaint: Skin/Abscess/Foreign Body Stated complaint: hives Time Seen by Provider: 03/30/19 18:51 Source: patient, RN notes reviewed, old records reviewed Mode of arrival: ambulatory Limitations: no limitations - History of Present Illness Initial comments: 69-year-old male patient past medical history of skin for brain cancer, received chemotherapy yesterday presents to the chief complaint of rash. Patient reports that last night she began experiencing pruritus on her palms. Patient reports that she had a red rash that extended on the dorsal aspect of the forearms. Patient does report that she felt as if the rash was involving the face and did port that she felt as if he had a little bit of facial swelling last night. Patient reports that she woke up this morning and only had a rash in the forearms. Patient reports that she took Benadryl which mostly resolved the rash. Denies any shortness of breath, sensation of facial swelling or throat closing, reports that she is breathing at baseline, denies any other complaints. Systemic: Pt denies fatigue, fever/chills. Pt denies weakness, night sweats, weight loss. Neuro: Pt denies headache, visual disturbances, syncope or pre-syncope. HEENT: Pt denies ocular discharge or irritation, otalgia, rhinorrhea, pharyngitis or notable lymphadenopathy. Cardiopulmonary: Pt denies chest pain, SOB, heart palpitations, dyspnea on exertion. Abdominal/GI: Pt denies abdominal pain, n/v/d. : Pt denies dysuria, burning w/ urination, frequency/urgency. Denies new onset urinary or bowel incontinence. MSK: Pt denies myalgia, loss of strength or function in extremities. Neuro: Pt denies new onset weakness, paresthesias. - Related Data Home Medications Medication Instructions Recorded Confirmed Atorvastatin [Lipitor] 10 mg PO HS 05/18/17 09/06/18 LORazepam [Ativan] 0.5 mg PO DIRECTED PRN 05/18/17 09/06/18 Acetaminophen Tab [Tylenol] 325 mg PO Q4H PRN 09/06/18 09/06/18 Apixaban [Eliquis] 5 mg PO BID 09/06/18 09/06/18 Temozolomide [Temodar] 300 mg PO DIRECTED 09/06/18 09/06/18 cycloSPORINE [Restasis] 1 applicator BOTH EYES BID 09/06/18 09/06/18 Previous Rx's Medication Instructions Recorded Verapamil Sr [Isoptin Sr] 120 mg PO DAILY #30 tablet.er 09/09/18 EPINEPHrine (Auto Inject) [Epipen] 0.3 mg IM ONCE PRN #2 pen 03/30/19 Famotidine [Pepcid] 20 mg PO DAILY 4 Days #4 tablet 03/30/19 Allergies Allergy/AdvReac Type Severity Reaction Status Date / Time amoxicillin Allergy Rash/Hives Verified 03/30/19 18:44 cephalexin Allergy Rash/Hives Verified 09/06/18 08:13 Review of Systems ROS Statement: Those systems with pertinent positive or pertinent negative responses have been documented in the HPI. ROS Other: All systems not noted in ROS Statement are negative. Past Medical History Past Medical History: Cancer, Deep Vein Thrombosis (DVT), Hyperlipidemia Additional Past Medical History / Comment(s): diverticulitis, brain cancer History of Any Multi-Drug Resistant Organisms: None Reported Past Surgical History: Ablation, Tonsillectomy Additional Past Surgical History / Comment(s): breast surgery, brain surgery Past Psychological History: No Psychological Hx Reported Smoking Status: Never smoker Past Alcohol Use History: Occasional Past Drug Use History: None Reported - Past Family History Father Family Medical History: Cancer Additional Family Medical History / Comment(s): PROSTATE CANCER Mother Family Medical History: Myocardial Infarction (MD) General Exam - General Exam Comments Initial Comments: Constitutional: NAD, AOX3, Pt has pleasant affect. HEENT: NC/AT, trachea midline, neck supple, no lymphadenopathy. Posterior pharynx non erythematous, without exudates. External ears appear normal, without discharge. Mucous membranes moist. Eyes PERRLA, EOM intact. There is no scleral icterus. No pallor noted. Cardiopulmonary: RRR, no murmurs, rubs or gallops, no JVD noted. Lungs CTAB in anterior and posterior simpson. No peripheral edema. Abdominal exam: Abdomen soft and non-distended. Abdomen non-tender to palpation in all 4 quadrants. Bowel sounds active in LLQ. No hepatosplenomegaly. No ecchymosis Neuro: CN II-XII grossly intact. No nuchal rigidity. No raccon eyes, no glover sign, no hemotympanum. No cervical spinal tenderness. MSK: No posterior calf tenderness bilaterally, homans sign negative bilaterally. Posterior tibialis and radial pulse +2 bilaterally. Sensation intact in upper and lower extremities. Full active ROM in upper and lower extremities, 5/5 stregnth. Derm: No rash noted, no angioedema, no posterior pharyngeal swelling. Limitations: no limitations Course Vital Signs 03/30/19 18:42 Temperature 97.6 F Pulse Rate 75 Respiratory 18 Rate Blood Pressure 134/82 O2 Sat by Pulse 96 Oximetry Medical Decision Making - Medical Decision Making 69-year-old male patient presents to ED with cheif complaint rash. Patient vital signs stable, afebrile. Physical exam did not display rash. No a ngioedema. The patient active chemotherapy initially started Pepcid. Patient to take Benadryl as needed. Patient will be prescribed EpiPen for use in case of emergency case of anaphylaxis. Case discussed with Dr. Kraus. Disposition Clinical Impression: Rash Disposition: HOME SELF-CARE Condition: Stable Instructions (If sedation given, give patient instructions): Acute Rash (ED) Additional Instructions: Patient to adhere to previously discussed treatment plan and will take medication(s) as directed. Patient to follow up with PCP in 1-2 days. Patient to return to ED if symptoms do not improve. Take medication as directed. Use benadryl as needed. Follow up with primary care provider tomorrow. Return to ER if condition worsens. Only use EpiPen for emergency anaphylaxis. Prescriptions: EPINEPHrine (Auto Inject) [Epipen] 0.3 mg IM ONCE PRN #2 pen PRN Reason: Anaphylaxis Famotidine [Pepcid] 20 mg PO DAILY 4 Days #4 tablet Is patient prescribed a controlled substance at d/c from ED?: No Referrals: Flory Cordoba MD [Primary Care Provider] - 1-2 days
[2019-03-30 19:41] VITALS: BP 116/92; PULSE 85
== END 2019-03-30 19:40 | disposition home or self-care (01) ==
LOC: EC 18:24
DX: R21 Rash and other nonspecific skin eruption (principal); E78.5 Hyperlipidemia, unspecified; Z79.01 Long term (current) use of anticoagulants; Z79.899 Other long term (current) drug therapy; Z88.0 Allergy status to penicillin; Z88.1 Allergy status to other antibiotic agents; Z85.841 Personal history of malignant neoplasm of brain; Z86.718 Personal history of other venous thrombosis and embolism
CPT/HCPCS: 99283

== ENCOUNTER 2019-04-09 09:21 | Day surgery (SDC) | payer MEDICARE ==
[2019-04-07 13:19] VITALS: BMI 32.7
[~2019-04-09 09:21] MED LIST: LACTATED RINGERS 1,000 ML IV SCH; LIDOCAINE 1% 20 ML VIAL (10MG/ML) FOR IV START INTRADERMA PRN
[2019-04-09 09:45] VITALS: RESP 16; TEMP 98
[2019-04-09 10:01] LABS: Glucose,Whole Blood 86 mg/dL (75-99)
[2019-04-09] MEDS ORDERED: PROPOFOL 10 MG/ML 20 ML VIAL IV ONE (10:21)
--- NOTE | 2019-04-09 10:46 | P.PCN ---
Date of Procedure: 04/09/19 Procedure(s) Performed: Brief history: Patient is a pleasant 69-year-old white female scheduled for an elective upper endoscopy as well as colonoscopy as a part of evaluation of abdominal pain and Hemoccult-positive stool. Procedure performed: Esophagogastroduodenoscopy biopsy Colonoscopy Preoperative diagnosis: Abdominal pain Hemoccult positive stool Anesthesia: [facility] [place] Procedure: After informed consent was obtained from the patient was brought into the endoscopy unit and IV sedation was administered by anesthesia under continuous monitoring. Initially upper endoscopy was done. The Olympus GF 160 video endoscope was inserted inserted into the mouth and esophagus intubated without any difficulty and was gradually advanced into the stomach and duodenum and carefully examined. The bulb and second part of the duodenum appeared normal. The scope was then withdrawn into the stomach adequately insufflated with air and upon careful examination the antrum had mild gastritis and biopsies were done from this area. The body, cardia and fundus appeared normal. The scope was then withdrawn into the esophagus. The GE junction was located at 40 cm to the incisors. It appeared regular with no erythema erosions or ulcerations. Rest of the esophagus appeared normal. Patient tolerated the procedure well. At this time the patient continued to remain sedation. Initial digital rectal examination was normal. Olympus CF 160 video colonoscope was then inserted into the rectum and gradually advanced to the cecum without any difficulty. Careful examination was performed as the scope was gradually being withdrawn. The prep was fair.. The cecum, ascending colon, transverse colon, descending colon, sigmoid colon and rectum appeared normal. Scattered sigmoid diverticula seen. Retroflexion was performed in the rectum and monitor hemorrhoids were noted. Patient tolerated the procedure well. Impression: 1. Endoscopy revealed mild antral gastritis but no evidence of esophagitis or peptic ulcer disease 2. Colonoscopy revealed scattered sigmoidal diverticulosis and small internal hemorrhoids Recommendations: Findings of this examination were discussed with the patient as well as a family. She was advised to follow with the biopsy results. She'll be a high- fiber diet and fiber supplements a regular basis.
[2019-04-09 11:09] VITALS: BP 124/77; PULSE 62
== END 2019-04-09 11:52 | disposition home or self-care (01) ==
LOC: ORWHC2ENDO 09:21
PROVIDERS: ATTEND Internal Medicine Gastroenterology
DX: K29.50 Unspecified chronic gastritis without bleeding (principal); K57.30 Diverticulosis of large intestine without perforation or abscess without bleeding; K64.8 Other hemorrhoids; I48.91 Unspecified atrial fibrillation; Z79.01 Long term (current) use of anticoagulants; Z79.899 Other long term (current) drug therapy; Z88.0 Allergy status to penicillin; Z88.1 Allergy status to other antibiotic agents; Z86.718 Personal history of other venous thrombosis and embolism; Z85.841 Personal history of malignant neoplasm of brain; Z92.21 Personal history of antineoplastic chemotherapy; Z92.3 Personal history of irradiation
CPT/HCPCS: 88305; 45378; 43239; J2704

== ENCOUNTER → 2019-07-24 | Outpatient (CLI) | payer MEDICARE ==
--- NOTE | 2019-07-28 01:14 | MR ---
EXAMINATION TYPE: MR lumbar spine wo/w con DATE OF EXAM: 07/24/2019 COMPARISON: NONE HISTORY: 69-year-old female Low Back Pain Technique: Multiplanar, multisequence images of the lumbar spine were obtained before and after admin istration of 9.5 mL intravenous Gadavist gadolinium contrast. FINDINGS: Borderline ectasia upper abdominal aorta at 2.5 cm. Some parapelvic cysts noted at the left kidney me asuring up to 1.9 cm. Hypertrophic facet arthropathy throughout, greatest mid to lower cervical spine. Trace grade 1 anterolisthesis at L4-L5. Remaining alignment is maintained. Mild heterogeneous marrow signal without suspicious bone marrow placement. Mild degenerative disc disease throughout with variable disc desiccation and disc bulging. Anterior e ndplate spondylosis upper lumbar spine. Scattered ligamentum flavum thickening. Conus medullaris is normal. At T12-L1, minimal bulging disc without canal or foraminal stenosis. At L1-L2, mild diffuse disc bulge impressing on the ventral thecal sac without significant canal or f oraminal stenosis. Left-sided hypertrophic facet arthropathy. At L2-L3, diffuse disc bulge with ligamentum flavum thickening and hypertrophic facet arthropathy. Th ere is mild narrowing of the spinal canal without significant neural foraminal stenosis. At L3-L4, mild diffuse disc bulge with ligamentum flavum thickening and facet arthropathy. Minimal na rrowing of the spinal canal with mild right neural foraminal stenosis. At L4-L5, hypertrophic facet arthropathy with ligamentum flavum thickening and bulging disc. Trace gr nidia 1 anterolisthesis. Changes result in minimal narrowing of the right neural foramen. No spinal can al stenosis. At L5-S1, hypertrophic facet arthropathy without canal or foraminal stenosis. No abnormal enhancement within the spinal canal. IMPRESSION: 1. Hypertrophic facet arthropathy especially in the mid to lower lumbar spine. Degenerative trace gra de 1 anterolisthesis at L4-L5. 2. Mild multilevel degenerative disc disease and ligamentum flavum thickening throughout. 3. Changes resulting in mild narrowing of the spinal canal at L2-L3 and minimal narrowing at L3-L4. N o high-grade canal compromise. 4. Mild right neuroforaminal stenosis at L3-L4 and minimal narrowing of the right neuroforamen at L4- L5. No high-grade foraminal compromise.
== END | disposition home or self-care (01) ==
LOC: RADMRIMAIN 10:23
PROVIDERS: ATTEND Physical Medicine & Rehabilitation
DX: M48.061 Spinal stenosis, lumbar region without neurogenic claudication (principal); M51.16 Intervertebral disc disorders with radiculopathy, lumbar region; M43.16 Spondylolisthesis, lumbar region; M47.26 Other spondylosis with radiculopathy, lumbar region; M46.96 Unspecified inflammatory spondylopathy, lumbar region; M16.0 Bilateral primary osteoarthritis of hip; M62.81 Muscle weakness (generalized); Z79.01 Long term (current) use of anticoagulants
CPT/HCPCS: 72158; A9585

== ENCOUNTER 2020-03-18 16:02 | Inpatient (IN) | payer MEDICARE ==
[2020-03-18] MEDS ORDERED: SODIUM CHLORIDE 0.9% 1,000 ML IV STA (16:41)
[2020-03-18] MEDS ORDERED: SODIUM CHLORIDE 0.9% 500 ML 500 ML IV STA (16:41)
--- NOTE | 2020-03-18 16:41 | ED ---
Arrhythmia/Palpitations HPI - General Chief Complaint: Arrhythmia/Palpitations Stated Complaint: Low BP - Sent by PCP Time Seen by Provider: 03/18/20 16:26 Source: patient, RN notes reviewed Mode of arrival: ambulatory Limitations: no limitations - History of Present Illness Initial Comments: Is a 70-year-old female history atrial fibrillation who presents from her doctor's office with complaints of intermittent palpitations some dizziness and low blood pressure. She does take blood pressure home she said it was low states the number she was getting was 68/51 today also another one earlier 87/62 she did have some dizziness earlier she did fall against a door and sustained a bruise to her left arm. No head neck or back pain fevers chills or sweats she states other than having cloudy urine and she does suspect a possible UTI no other problems at this time MD Complaint: "heart racing", palpitations - Related Data Home Medications Medication Instructions Recorded Confirmed Atorvastatin [Lipitor] 10 mg PO HS 05/18/17 03/18/20 LORazepam [Ativan] 0.5 mg PO BID PRN 05/18/17 03/18/20 Apixaban [Eliquis] 5 mg PO BID 09/06/18 03/18/20 cycloSPORINE 0.05% OPHTH SOLN 1 applic BOTH EYES BID 03/18/20 03/18/20 [Restasis] Previous Rx's Medication Instructions Recorded Verapamil Sr [Isoptin Sr] 120 mg PO DAILY #30 tablet.er 09/09/18 Allergies Allergy/AdvReac Type Severity Reaction Status Date / Time amoxicillin Allergy Rash/Hives Verified 03/18/20 18:35 cephalexin Allergy Rash/Hives Verified 03/18/20 18:35 Review of Systems ROS Statement: Those systems with pertinent positive or pertinent negative responses have been documented in the HPI. ROS Other: All systems not noted in ROS Statement are negative. Past Medical History Past Medical History: Atrial Fibrillation, Cancer, Deep Vein Thrombosis (DVT), Hyperlipidemia Additional Past Medical History / Comment(s): WAS IN ER FOR RASH AFTER HAVING CHEMO 03/29/19-RASH RESOLVED NOW. HAS CHEMO 5 DAYS A MONTH. diverticulitis, brain cancer. LLE DVT. HAD AN EPISODE OF A-FIB 09/06/18. POLYPS IN THROAT. History of Any Multi-Drug Resistant Organisms: None Reported Past Surgical History: Breast Surgery, Cardiac Ablation, Tonsillectomy Additional Past Surgical History / Comment(s): breast surgery,-BENIGN. brain surgery. UTERINE BIOPSY. COLONOSCOPY Past Anesthesia/Blood Transfusion Reactions: No Reported Reaction Past Psychological History: No Psychological Hx Reported Smoking Status: Never smoker Past Alcohol Use History: Occasional Past Drug Use History: None Reported - Past Family History Father Family Medical History: Cancer Additional Family Medical History / Comment(s): PROSTATE CANCER Mother Family Medical History: Myocardial Infarction ([place]) General Exam - General Exam Comments Initial Comments: This is a well-developed well-nourished awake alert oriented 3 female Limitations: no limitations General appearance: alert, in no apparent distress Head exam: Present: atraumatic, normocephalic, normal inspection Eye exam: Present: normal appearance, PERRL, EOMI. Absent: scleral icterus, conjunctival injection, periorbital swelling ENT exam: Present: normal exam, mucous membranes moist Neck exam: Present: normal inspection, full ROM, other (No stridor JVD or bruits ). Absent: tenderness, meningismus, lymphadenopathy Respiratory exam: Present: normal lung sounds bilaterally. Absent: respiratory distress, wheezes, rales, rhonchi, stridor Cardiovascular Exam: Present: regular rate, normal rhythm, normal heart sounds. Absent: systolic murmur, diastolic murmur, rubs, gallop, clicks GI/Abdominal exam: Present: soft, normal bowel sounds. Absent: distended, tenderness, guarding, rebound, rigid Extremities exam: Present: normal inspection, full ROM, normal capillary refill. Absent: tenderness, pedal edema, joint swelling, calf tenderness Back exam: Present: normal inspection Neurological exam: Present: alert, oriented X3, CN II-XII intact Psychiatric exam: Present: normal affect, normal mood Skin exam: Present: warm, dry, intact, normal color. Absent: rash Course Vital Signs 03/18/20 03/18/20 03/18/20 16:20 17:03 17:57 Temperature 97.6 F Pulse Rate 79 64 Respiratory 20 18 Rate Blood Pressure 108/73 121/76 135/79 O2 Sat by Pulse 96 97 Oximetry EKG Findings - EKG Results: EKG: interpreted by ERMD, sinus rhythm (Sinus rhythm with PACs rate 67. 01 88 QRS duration 80 QT since QTC 366/386 low-voltage QRS possible inferior infarct of undetermined age) Medical Decision Making - Medical Decision Making I did discuss findings with patient patient will be admitted is evidence of UTI but likely having paroxysmal atrial fibrillation. Case is discussed with Dr. Khanna's group - Lab Data Result diagrams: 03/18/20 16:52 03/18/20 16:52 Lab Results 03/18/20 03/18/20 03/18/20 Range/Units 16:52 16:52 16:52 WBC 6.7 (3.8-10.6) k/uL RBC 4.54 (3.80-5.40) m/uL Hgb 14.2 (11.4-16.0) gm/dL Hct 42.9 (34.0-46.0) % MCV 94.5 (80.0-100.0) fL MCH 31.4 (25.0-35.0) pg MCHC 33.2 (31.0-37.0) g/dL RDW 13.0 (11.5-15.5) % Plt Count 193 (150-450) k/uL Neutrophils % 72 % Lymphocytes % 18 % Monocytes % 7 % Eosinophils % 2 % Basophils % 1 % Neutrophils # 4.8 (1.3-7.7) k/uL Lymphocytes # 1.2 (1.0-4.8) k/uL Monocytes # 0.5 (0-1.0) k/uL Eosinophils # 0.1 (0-0.7) k/uL Basophils # 0.0 (0-0.2) k/uL PT 9.8 (9.0-12.0) sec INR 0.9 (<1.2) APTT 22.1 (22.0-30.0) sec Sodium 137 (137-145) mmol/L Potassium 4.0 (3.5-5.1) mmol/L Chloride 108 H (98-107) mmol/L Carbon Dioxide 26 (22-30) mmol/L Anion Gap 3 mmol/L BUN 20 H (7-17) mg/dL Creatinine 1.05 H (0.52-1.04) mg/dL Est GFR (CKD-EPI)AfAm 62 (>60 ml/min/1.73 sqM) Est GFR (CKD-EPI)NonAf 54 (>60 ml/min/1.73 sqM) Glucose 104 H (74-99) mg/dL Calcium 9.1 (8.4-10.2) mg/dL Magnesium 2.3 (1.6-2.3) mg/dL Total Bilirubin 0.3 (0.2-1.3) mg/dL AST 19 (14-36) U/L ALT 12 (4-34) U/L Alkaline Phosphatase 72 (38-126) U/L Creatine Kinase 34 (30-135) U/L Troponin I (0.000-0.034) ng/mL Total Protein 5.9 L (6.3-8.2) g/dL Albumin 3.7 (3.5-5.0) g/dL Urine Color Urine Appearance (Clear) Urine pH (5.0-8.0) Ur Specific [place] (1.001-1.035) Urine Protein (Negative) Urine Glucose (UA) (Negative) Urine Ketones (Negative) Urine Blood (Negative) Urine Nitrite (Negative) Urine Bilirubin (Negative) Urine Urobilinogen (<2.0) mg/dL Ur Leukocyte Esterase (Negative) Urine RBC (0-5) /hpf Urine WBC (0-5) /hpf Ur Squamous Epith Cells (0-4) /hpf Urine Bacteria (None) /hpf Hyaline Casts (0-2) /lpf Urine Mucus (None) /hpf 03/18/20 03/18/20 Range/Units 16:52 17:03 WBC (3.8-10.6) k/uL RBC (3.80-5.40) m/uL Hgb (11.4-16.0) gm/dL Hct (34.0-46.0) % MCV (80.0-100.0) fL MCH (25.0-35.0) pg MCHC (31.0-37.0) g/dL RDW (11.5-15.5) % Plt Count (150-450) k/uL Neutrophils % % Lymphocytes % % Monocytes % % Eosinophils % % Basophils % % Neutrophils # (1.3-7.7) k/uL Lymphocytes # (1.0-4.8) k/uL Monocytes # (0-1.0) k/uL Eosinophils # (0-0.7) k/uL Basophils # (0-0.2) k/uL PT (9.0-12.0) sec INR (<1.2) APTT (22.0-30.0) sec Sodium (137-145) mmol/L Potassium (3.5-5.1) mmol/L Chloride (98-107) mmol/L Carbon Dioxide (22-30) mmol/L Anion Gap mmol/L BUN (7-17) mg/dL Creatinine (0.52-1.04) mg/dL Est GFR (CKD-EPI)AfAm (>60 ml/min/1.73 sqM) Est GFR (CKD-EPI)NonAf (>60 ml/min/1.73 sqM) Glucose (74-99) mg/dL Calcium (8.4-10.2) mg/dL Magnesium (1.6-2.3) mg/dL Total Bilirubin (0.2-1.3) mg/dL AST (14-36) U/L ALT (4-34) U/L Alkaline Phosphatase (38-126) U/L Creatine Kinase (30-135) U/L Troponin I <0.012 (0.000-0.034) ng/mL Total Protein (6.3-8.2) g/dL Albumin (3.5-5.0) g/dL Urine Color Yellow Urine Appearance Cloudy H (Clear) Urine pH 5.5 (5.0-8.0) Ur Specific [place] 1.020 (1.001-1.035) Urine Protein Negative (Negative) Urine Glucose (UA) Negative (Negative) Urine Ketones Negative (Negative) Urine Blood Small H (Negative) Urine Nitrite Negative (Negative) Urine Bilirubin Negative (Negative) Urine Urobilinogen <2.0 (<2.0) mg/dL Ur Leukocyte Esterase Large H (Negative) Urine RBC 1 (0-5) /hpf Urine WBC 48 H (0-5) /hpf Ur Squamous Epith Cells 2 (0-4) /hpf Urine Bacteria Rare H (None) /hpf Hyaline Casts 12 H (0-2) /lpf Urine Mucus Many H (None) /hpf - Radiology Data Radiology results: report reviewed (I did review the imaging and report no acute findings.), image reviewed Disposition Clinical Impression: Paroxysmal atrial fibrillation, Urinary tract infection Disposition: ADMITTED IP TO THIS HOSP Condition: Fair Referrals: Flory Cordoba MD [Primary Care Provider] - 1-2 days
[2020-03-18 17:02] LABS: Basophils % (A) 1 %; Eosinophils # (A) 0.1 k/uL (0-0.7); Eosinophils % (A) 2 %; HCT 42.9 % (34.0-46.0); HGB 14.2 gm/dL (11.4-16.0); Lymphocytes # (A) 1.2 k/uL (1.0-4.8); Lymphocytes % (A) 18 %; MCH 31.4 pg (25.0-35.0); MCHC 33.2 g/dL (31.0-37.0); MCV 94.5 fL (80.0-100.0); Mean Platelet Volume 7.8; Monocytes # (A) 0.5 k/uL (0-1.0); Monocytes % (A) 7 %; Neutrophils # (A) 4.8 k/uL (1.3-7.7); Neutrophils % (A) 72 %; Platelet Count 193 k/uL (150-450); RBC 4.54 m/uL (3.80-5.40); WBC 6.7 k/uL (3.8-10.6)
[2020-03-18 17:13] LABS: Albumin 3.7 g/dL (3.5-5.0); Calcium 9.1 mg/dL (8.4-10.2); Magnesium 2.3 mg/dL (1.6-2.3); Total Bilirubin 0.3 mg/dL (0.2-1.3)
[2020-03-18 17:18] LABS: Appearance,Urine Cloudy (Clear); Bacteria,Urine Rare /hpf; Bilirubin,Urine Negative (Negative); Blood,Urine Small (Negative); Color,Urine Yellow; Glucose,Urine (UA) Negative (Negative); Hyaline Casts,Urine 12 /lpf (0-2); Ketones,Urine Negative (Negative); Leukocyte Esterase,Urine Large (Negative); Mucus,Urine Many /hpf; Nitrite,Urine Negative (Negative); PH, Urine 5.5 (5.0-8.0); Protein,Urine Negative (Negative); RBC,Urine 1 /hpf (0-5); Squamous Epithelial Cell,Urine 2 /hpf (0-4); Urobilinogen,Urine <2.0 mg/dL (<2.0); WBC,Urine 48 /hpf (0-5)
[2020-03-18 17:18] LABS: Total Protein 5.9 g/dL (6.3-8.2)
--- NOTE | 2020-03-18 17:19 | XR ---
EXAMINATION TYPE: XR chest 2V DATE OF EXAM: 03/18/2020 COMPARISON: 09/06/2018 HISTORY: Chest pain TECHNIQUE: 2 views FINDINGS: Heart and mediastinum are normal. Lungs are clear. Diaphragm is normal. Bony thorax appears normal. There are chest leads. IMPRESSION: Normal chest. No adverse change.
[2020-03-18 17:20] LABS: INR 0.9 (<1.2); Partial Thromboplastin Time 22.1 sec (22.0-30.0); Prothrombin Time 9.8 sec (9.0-12.0)
[2020-03-18] MEDS ORDERED: LEVOFLOXACIN 500MG-D5W PMX 500 MG in DEXTROSE/WATER 1 100ML.BAG IVPB STA (18:42)
[2020-03-18] MEDS ORDERED: NALOXONE 0.4 MG/ML 1 ML VIAL IV PRN (18:46)
[2020-03-18] MEDS ORDERED: LORazepam 0.5 MG TAB PO PRN (18:48)
[2020-03-18] MEDS ORDERED: SODIUM CHLORIDE 0.9% 1,000 ML IV SCH (19:00)
[2020-03-18] MEDS: APIXABAN 5 MG TAB PO SCH (21:20)
[2020-03-18] MEDS: ATORVASTATIN 10 MG TAB PO SCH (21:20)
[2020-03-18] MEDS: cycloSPORINE 0.05% OPHTH 0.4 ML DROPERETTE BOTH EYES SCH (22:12)
--- NOTE | 2020-03-19 07:46 | P.HPIM ---
History of Present Illness This is a pleasant 70 years old female with past medical history of low back pain, degenerative joint disease, diverticulosis, Lower GI bleed secondary to diverticula disease, left lower extremity DVT on Eliquis, atrial fibrillation, brain cancer status post chemo and radiotherapy, hyperlipidemia , Atrial fibrillation on Eliquis presents because of low blood pressure. She is a patient of Dr. Jenkins. Patient was visiting her steel rule die maker Dr. Manley few days ago who advised her to check her blood pressure frequently and yesterday she noticed her blood pressure was on the low side 68/51 and 87/62 associated feeling as if she is anxious as she states, she felt racing heart rate, and dizziness upon standing up. She denies dyspnea and or dyspnea. No fever. No nausea vomiting. No diarrhea or change in bowel habits. She noticed that she had to go to pee but ultimately little bit comes out and the urine was cloudy Vitals are stable. Blood pressure on the presentation was borderline 108/73, currently is 117/67. Labs are unremarkable including CBC, INR is 1.9, basic metabolic manner and liver enzymes are unremarkable, creatinine is slightly elevated at 1.05 Urine analysis is showing large leukocyte esterase and high WBC of 48. Urine culture is pending Chest x-ray: No acute process per Radiologist. EKG showing normal sinus rhythm at 67 with PAC and QTC of [address]-T changes. In the emergency room patient was started on Levaquin and given normal saline 2.5 L. Review of Systems CONSTITUTIONAL: No fever, no malaise, no fatigue. HEENT: No recent visual problems or hearing problems. Denied any sore throat. CARDIOVASCULAR: No orthopnea, PND, no palpitations, no syncope. PULMONARY: No shortness of breath, no cough, no hemoptysis. GASTROINTESTINAL: No diarrhea, no nausea, no vomiting, no abdominal pain. Normoactive bowel sounds. NEUROLOGICAL: No headaches, no weakness, no numbness. HEMATOLOGICAL: Denies any bleeding or petechiae. GENITOURINARY: Denies any burning micturition, frequency, or urgency. MUSCULOSKELETAL/RHEUMATOLOGICAL: Denies any joint pain, swelling, or any muscle pain. ENDOCRINE: Denies any polyuria or polydipsia. Past Medical History Past Medical History: Atrial Fibrillation, Cancer, Deep Vein Thrombosis (DVT), Hyperlipidemia Additional Past Medical History / Comment(s): WAS IN ER FOR RASH AFTER HAVING CHEMO 03/29/19-RASH RESOLVED NOW. HAS CHEMO 5 DAYS A MONTH. diverticulitis, brain cancer. LLE DVT. HAD AN EPISODE OF A-FIB 09/06/18. POLYPS IN THROAT. History of Any Multi-Drug Resistant Organisms: None Reported Past Surgical History: Breast Surgery, Tonsillectomy, Uterine Ablation Additional Past Surgical History / Comment(s): breast surgery,-BENIGN. brain surgery. UTERINE BIOPSY. COLONOSCOPY Past Anesthesia/Blood Transfusion Reactions: No Reported Reaction Past Psychological History: No Psychological Hx Reported Smoking Status: Never smoker Past Alcohol Use History: Occasional Past Drug Use History: None Reported - Past Family History Father Family Medical History: Cancer Additional Family Medical History / Comment(s): PROSTATE CANCER Mother Family Medical History: Myocardial Infarction ([place]) Medications and Allergies Home Medications Medication Instructions Recorded Confirmed Type Atorvastatin [Lipitor] 10 mg PO HS 05/18/17 03/18/20 History LORazepam [Ativan] 0.5 mg PO BID PRN 05/18/17 03/18/20 History Apixaban [Eliquis] 5 mg PO BID 09/06/18 03/18/20 History Verapamil Sr [Isoptin Sr] 120 mg PO DAILY #30 tablet.er 09/09/18 03/18/20 Rx cycloSPORINE 0.05% OPHTH SOLN 1 applic BOTH EYES BID 03/18/20 03/18/20 History [Restasis] Allergies Allergy/AdvReac Type Severity Reaction Status Date / Time amoxicillin Allergy Rash/Hives Verified 03/18/20 18:35 cephalexin Allergy Rash/Hives Verified 03/18/20 18:35 Physical Exam Vitals: Vital Signs Temp Pulse Pulse Resp BP BP Pulse Ox 03/19/20 01:50 97.4 F L 68 117/67 96 03/18/20 20:40 97.5 F L 64 129/77 99 03/18/20 19:54 58 L 18 137/81 96 03/18/20 17:57 64 18 135/79 97 03/18/20 17:03 121/76 03/18/20 16:20 97.6 F 79 20 108/73 96 Intake and Output 03/18/20 03/19/20 03/19/20 22:59 06:59 14:59 Intake Total 400 Output Total 500 Balance -100 Intake: Oral 400 Output: Urine 500 Other: Voiding Method Toilet Toilet # Voids 1 Weight 90.718 kg GENERAL: The patient is alert and oriented x3, not in any acute distress. Well developed, well nourished. HEENT: Pupils are round and equally reacting to light. EOMI. No scleral icterus. No conjunctival pallor. Normocephalic, atraumatic. No pharyngeal erythema. No thyromegaly. CARDIOVASCULAR: S1 and S2 present. No murmurs, rubs, or gallops. PULMONARY: Chest is clear to auscultation, no wheezing or crackles. ABDOMEN: Soft, nontender, nondistended, normoactive bowel sounds. No palpable organomegaly. MUSCULOSKELETAL: No joint swelling or deformity. EXTREMITIES: No cyanosis, clubbing, or pedal edema. NEUROLOGICAL: Gross neurological examination did not reveal any focal deficits. SKIN: No rashes. No petechiae Results CBC & Chem 7: 03/18/20 16:52 03/18/20 16:52 Labs: Abnormal Lab Results - Last 24 Hours (Table) 03/18/20 03/18/20 Range/Units 16:52 17:03 Chloride 108 H (98-107) mmol/L BUN 20 H (7-17) mg/dL Creatinine 1.05 H (0.52-1.04) mg/dL Glucose 104 H (74-99) mg/dL Total Protein 5.9 L (6.3-8.2) g/dL Urine Appearance Cloudy H (Clear) Urine Blood Small H (Negative) Ur Leukocyte Esterase Large H (Negative) Urine WBC 48 H (0-5) /hpf Urine Bacteria Rare H (None) /hpf Hyaline Casts 12 H (0-2) /lpf Urine Mucus Many H (None) /hpf Microbiology - Last 24 Hours (Table) 03/18/20 17:03 Urine Culture - Preliminary Urine,Voided Thrombosis Risk Factor Assmnt - Choose All That Apply Each Factor Represents 1 point: Obesity (BMI >25) Each Risk Factor Represents 2 Points: Age 61-74 years Each Risk Factor Represents 3 Points: History of DVT/PE Thrombosis Risk Factor Assessment Total Risk Factor Score: 6 Thrombosis Risk Factor Assessment Level: High Risk Assessment and Plan Assessment: Acute urinary tract infection Hypertension on the presentation, improved Postural dizziness and palpitations secondary to above. Improving paroxysmal atrial fibrillation History of Acute lower GI bleed. Likely diverticular bleed. Diverticulosis History of left lower extremity DVT. Currently on Eliquis History of Brain cancer treated with chemo and radiation Hyperlipidemia Plan: This is a pleasant 70 years old female who presents because of UTI and hypertension. Continue with Levaquin and follow-up urine culture. Continue gentle hydration. Labs and medication were reviewed.. Continue same treatment. Continue with symptomatic treatment. Resume home medication. Monitor lytes and vitals. DVT and GI prophylaxis. Further recommendations depends on the clinical course of the patient DVT prophylaxis:Eliquis GI Prophylaxis: Pepcid
[2020-03-19] MEDS: cycloSPORINE 0.05% OPHTH 0.4 ML DROPERETTE BOTH EYES SCH ×2 (08:37→21:03)
[2020-03-19] MEDS: APIXABAN 5 MG TAB PO SCH ×2 (08:37→21:02)
[2020-03-19] MEDS: VERAPAMIL SR 120 MG TABLET.ER PO SCH (08:37)
[2020-03-19] MEDS: SODIUM CHLORIDE 0.9% 1,000 ML IV SCH ×2 (08:40→21:04)
[2020-03-19] MEDS ORDERED: LEVOFLOXACIN 500MG-D5W PMX 500 MG in DEXTROSE/WATER 1 100ML.BAG IVPB SCH (20:00)
[2020-03-19] MEDS: ATORVASTATIN 10 MG TAB PO SCH (21:02)
[2020-03-20 03:49] VITALS: RESP 16
[2020-03-20] MEDS: VERAPAMIL SR 120 MG TABLET.ER PO SCH (08:26)
[2020-03-20] MEDS: APIXABAN 5 MG TAB PO SCH (08:26)
[2020-03-20] MEDS: cycloSPORINE 0.05% OPHTH 0.4 ML DROPERETTE BOTH EYES SCH (08:27)
[2020-03-20] MEDS ORDERED: ACETAMINOPHEN TAB 325 MG TAB PO PRN (08:34)
--- NOTE | 2020-03-20 08:50 | P.DS ---
Providers Date of admission: 03/20/20 08:27 Attending physician: Stacey Khanna Primary care physician: Flory Cordoba Hospital Course: Diagnoses Acute urinary tract infection, adequately treated. Urine culture is negative Acute kidney injury and dehydration, present on admission. Improved Hypotension on the presentation, improved Postural dizziness and palpitations secondary to above. Improving paroxysmal atrial fibrillation . Currently sinus rhythm and draped controlled History of Acute lower GI bleed. Likely diverticular bleed. Diverticulosis History of left lower extremity DVT. Currently on Eliquis History of Brain cancer treated with chemo and radiation Hyperlipidemia Hospital course: This is a pleasant 70 years old female with past medical history of low back pain, degenerative joint disease, diverticulosis, Lower GI bleed secondary to diverticula disease, left lower extremity DVT on Eliquis, atrial fibrillation, brain cancer status post chemo and radiotherapy, hyperlipidemia , Atrial fibrillation on Eliquis presents because of low blood pressure. She is a patient of Dr. Jenkins. 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 Manley few days ago who advised her to check her blood pressure frequently and yesterday she noticed her blood pressure was on the low side 68/51 and 87/62 associated feeling as if she is anxious as she states, she felt racing heart rate, and dizziness upon standing up. She fell without losing consciousness. Also her creatinine increase above her baseline from 0.5-1.05, patient was dehydrated and hypovolemic. Patient was treated with IV fluids, patient showed interval improvement in her symptoms and blood pressure improved. On the day of discharge blood pressure 131/74, heart rate 59 and she denies any dizziness, no chest pain or dyspnea, no palpitation she has good bowel movements and no vomiting tolerates diet with no fever. She noticed that she had to go to pee but ultimately little bit comes out and the urine was cloudy UA was suspicious for infections with large amount of leukocyte esterase and WBCs 48. She was treated with Levaquin. Urine culture came back negative and her symptoms improved. Patient is adequately treated and she does not need antibiotics upon discharge, currently states she has normal urine habits. She denies any other symptoms other than her chronic low back pain from her chronic arthritis Problems and management plan were discussed with the patient and he verbalized understanding and acceptance Patient was found stable and can be discharged home however he needs follow-up as an outpatient. Patient was instructed to follow up with PCP Dr. Jenkins within one week and patient agrees to call and make appointment as today is weakened Gen: patient is a AAOx3, no distress CVS: S1-S2, RRR, no murmur Lungs: B/L CTA, no wheezing Abdomen: soft, no distention, no tenderness, positive bowel sounds Extremity: no leg edema or induration Time spent more than 35 minutes Patient Condition at Discharge: Fair Plan - Discharge Summary Discharge Rx Participant: Yes New Discharge Prescriptions: No Action Atorvastatin [Lipitor] 10 mg PO HS LORazepam [Ativan] 0.5 mg PO BID PRN PRN Reason: Anxiety Apixaban [Eliquis] 5 mg PO BID Verapamil Sr [Isoptin Sr] 120 mg PO DAILY #30 tablet.er cycloSPORINE 0.05% OPHTH SOLN [Restasis] 1 applic BOTH EYES BID Discharge Medication List Atorvastatin [Lipitor] 10 mg PO HS 05/18/17 [History] LORazepam [Ativan] 0.5 mg PO BID PRN 05/18/17 [History] Apixaban [Eliquis] 5 mg PO BID 09/06/18 [History] Verapamil Sr [Isoptin Sr] 120 mg PO DAILY #30 tablet.er 09/09/18 [Rx] cycloSPORINE 0.05% OPHTH SOLN [Restasis] 1 applic BOTH EYES BID 03/18/20 [History] Follow up Appointment(s)/Referral(s): Flory Cordoba MD [Primary Care Provider] - 1-2 days Edgard Schmidt MD [STAFF PHYSICIAN] - 1 Week
[2020-03-20 09:54] VITALS: BP 114/77; PULSE 70; TEMP 97.7
[2020-03-20 10:30] LABS: African American GFR (CKD) >90 (>60 ml/min/1.73 sqM); Anion Gap 4 mmol/L; Blood Urea Nitrogen 12 mg/dL (7-17); Calcium 8.8 mg/dL (8.4-10.2); Carbon Dioxide 24 mmol/L (22-30); Chloride 110 mmol/L (98-107); Glucose 108 mg/dL (74-99); Non-African American GFR(CKD) >90 (>60 ml/min/1.73 sqM); Potassium 3.9 mmol/L (3.5-5.1); Sodium 138 mmol/L (137-145)
[2020-03-20] MEDS ORDERED: LEVOFLOXACIN 500 MG TAB PO SCH (20:00)
== END 2020-03-20 15:59 | disposition home or self-care (01) | DRG 689 ==
LOC: EC 16:02 → 3NCARDOBS 18:55 → OBSVTOIN 03-20 08:27
PROVIDERS: ADMIT Hospitalist; ATTEND Hospitalist
DX: N39.0 Urinary tract infection, site not specified (principal); K57.91 Diverticulosis of intestine, part unspecified, without perforation or abscess with bleeding; N17.9 Acute kidney failure, unspecified; I48.0 Paroxysmal atrial fibrillation; E86.0 Dehydration; E86.1 Hypovolemia; E78.5 Hyperlipidemia, unspecified; I95.1 Orthostatic hypotension; I10 Essential (primary) hypertension; G89.29 Other chronic pain; M54.5 Low back pain; Z79.01 Long term (current) use of anticoagulants; M19.90 Unspecified osteoarthritis, unspecified site; Z79.899 Other long term (current) drug therapy; Z87.19 Personal history of other diseases of the digestive system; Z85.841 Personal history of malignant neoplasm of brain; Z92.21 Personal history of antineoplastic chemotherapy; Z92.3 Personal history of irradiation; Z86.718 Personal history of other venous thrombosis and embolism; Z82.49 Family history of ischemic heart disease and other diseases of the circulatory system
CPT/HCPCS: 36415; 71046; 80048; 80053; 81001; 82550; 83735; 84484; 85025; 85610; 85730; 87040; 87086; 93005; 96360; 96361; 99285

== ENCOUNTER 2020-04-11 15:15 | Emergency (ER) | payer MEDICARE ==
[2020-04-11 15:40] VITALS: TEMP 96.8
[2020-04-11] MEDS ORDERED: SODIUM CHLORIDE 0.9% 1,000 ML IV STA (15:52)
[2020-04-11 16:33] LABS: Basophils % (A) 1 %; Eosinophils # (A) 0.1 k/uL (0-0.7); Eosinophils % (A) 2 %; HCT 44.4 % (34.0-46.0); HGB 14.6 gm/dL (11.4-16.0); Lymphocytes # (A) 1.7 k/uL (1.0-4.8); Lymphocytes % (A) 23 %; MCH 30.7 pg (25.0-35.0); MCV 92.9 fL (80.0-100.0); Mean Platelet Volume 7.4; Monocytes # (A) 0.5 k/uL (0-1.0); Monocytes % (A) 7 %; Neutrophils # (A) 4.9 k/uL (1.3-7.7); Neutrophils % (A) 66 %; Platelet Count 225 k/uL (150-450); RBC 4.77 m/uL (3.80-5.40); RDW 12.9 % (11.5-15.5); WBC 7.4 k/uL (3.8-10.6)
[2020-04-11 16:36] LABS: Appearance,Urine Clear (Clear); Bilirubin,Urine Negative (Negative); Blood,Urine Negative (Negative); Color,Urine Light Yellow; Glucose,Urine (UA) Negative (Negative); Ketones,Urine Negative (Negative); Leukocyte Esterase,Urine Negative (Negative); Nitrite,Urine Negative (Negative); PH, Urine 5.5 (5.0-8.0); Protein,Urine Negative (Negative); Specific Gravity,Urine 1.004 (1.001-1.035); Urobilinogen,Urine <2.0 mg/dL (<2.0)
[2020-04-11 16:42] LABS: Partial Thromboplastin Time 23.8 sec (22.0-30.0); Prothrombin Time 10.4 sec (9.0-12.0)
[2020-04-11 16:43] LABS: ALT 18 U/L (4-34); AST 39 U/L (14-36); African American GFR (CKD) >90 (>60 ml/min/1.73 sqM); Albumin 4.2 g/dL (3.5-5.0); Alkaline Phosphatase 69 U/L (38-126); Anion Gap 6 mmol/L; Blood Urea Nitrogen 12 mg/dL (7-17); Calcium 9.1 mg/dL (8.4-10.2); Carbon Dioxide 24 mmol/L (22-30); Chloride 103 mmol/L (98-107); Creatine Kinase 70 U/L (30-135); Glucose 92 mg/dL (74-99); Magnesium 2.1 mg/dL (1.6-2.3); Non-African American GFR(CKD) >90 (>60 ml/min/1.73 sqM); Phosphorus 4.4 mg/dL (2.5-4.5); Sodium 133 mmol/L (137-145); Total Bilirubin 0.8 mg/dL (0.2-1.3); Total Protein 7.1 g/dL (6.3-8.2)
[2020-04-11 16:48] LABS: Potassium 5.1 mmol/L (3.5-5.1)
--- NOTE | 2020-04-11 17:07 | ED ---
Arrhythmia/Palpitations HPI - General Chief Complaint: Arrhythmia/Palpitations Stated Complaint: AFib Time Seen by Provider: 04/11/20 15:50 Source: patient, family, RN notes reviewed, old records reviewed Mode of arrival: wheelchair - History of Present Illness Initial Comments: This is a 70-year-old female DF for evaluation patient presents today for evaluation regards to rule out atrial fibrillation did have a couple episodes of rapid heart rate although no increased heart rate here patient was a symptomatically at home as currently symptomatic here presenting with daughter and sister, patient was seen by home care Center DF for evaluation regarding atrial fibrillation. Here in the ER patient again has no complaints MD Complaint: rapid heart beat, "heart racing", atrial fibrillation (Known history of atrial fibrillation and has been taking all medications as directed) -: hour(s) Context: occurred during rest Arrhythmia History: atrial fibrillation Associated Symptoms: denies other symptoms - Related Data Home Medications Medication Instructions Recorded Confirmed Atorvastatin [Lipitor] 10 mg PO HS 05/18/17 03/18/20 LORazepam [Ativan] 0.5 mg PO BID PRN 05/18/17 03/18/20 Apixaban [Eliquis] 5 mg PO BID 09/06/18 03/18/20 cycloSPORINE 0.05% OPHTH SOLN 1 applic BOTH EYES BID 03/18/20 03/18/20 [Restasis] Previous Rx's Medication Instructions Recorded Verapamil Sr [Isoptin Sr] 120 mg PO DAILY #30 tablet.er 09/09/18 Allergies Allergy/AdvReac Type Severity Reaction Status Date / Time amoxicillin Allergy Rash/Hives Verified 04/11/20 15:39 cephalexin Allergy Rash/Hives Verified 04/11/20 15:39 Review of Systems ROS Statement: Those systems with pertinent positive or pertinent negative responses have been documented in the HPI. ROS Other: All systems not noted in ROS Statement are negative. Past Medical History Past Medical History: Atrial Fibrillation, Cancer, Deep Vein Thrombosis (DVT), Hyperlipidemia Additional Past Medical History / Comment(s): WAS IN ER FOR RASH AFTER HAVING CHEMO 03/29/19-RASH RESOLVED NOW. HAS CHEMO 5 DAYS A MONTH. diverticulitis, brain cancer. LLE DVT. HAD AN EPISODE OF A-FIB 09/06/18. POLYPS IN THROAT. History of Any Multi-Drug Resistant Organisms: None Reported Past Surgical History: Breast Surgery, Tonsillectomy, Uterine Ablation Additional Past Surgical History / Comment(s): breast surgery,-BENIGN. brain surgery. UTERINE BIOPSY. COLONOSCOPY Past Anesthesia/Blood Transfusion Reactions: No Reported Reaction Past Psychological History: No Psychological Hx Reported Smoking Status: Never smoker Past Alcohol Use History: Occasional Past Drug Use History: None Reported - Past Family History Father Family Medical History: Cancer Additional Family Medical History / Comment(s): PROSTATE CANCER Mother Family Medical History: Myocardial Infarction ([place]) General Exam General appearance: alert, in no apparent distress Head exam: Present: atraumatic, normocephalic, normal inspection Eye exam: Present: normal appearance, PERRL, EOMI. Absent: scleral icterus, conjunctival injection, periorbital swelling ENT exam: Present: normal exam, mucous membranes moist Neck exam: Present: normal inspection. Absent: tenderness, meningismus, lymphadenopathy Respiratory exam: Present: normal lung sounds bilaterally. Absent: respiratory distress, wheezes, rales, rhonchi, stridor Cardiovascular Exam: Present: regular rate, irregular rhythm, normal heart sounds. Absent: systolic murmur, diastolic murmur, rubs, gallop, clicks GI/Abdominal exam: Present: soft, normal bowel sounds. Absent: distended, tenderness, guarding, rebound, rigid Extremities exam: Present: normal inspection, full ROM, normal capillary refill. Absent: tenderness, pedal edema, joint swelling, calf tenderness Back exam: Present: normal inspection Neurological exam: Present: alert, oriented X3, CN II-XII intact Psychiatric exam: Present: normal affect, normal mood Skin exam: Present: warm, dry, intact, normal color. Absent: rash Course Vital Signs 04/11/20 04/11/20 04/11/20 15:37 16:31 18:00 Temperature 96.8 F L Pulse Rate 72 75 65 Respiratory 16 18 12 Rate Blood Pressure 117/69 122/71 119/74 O2 Sat by Pulse 99 99 97 Oximetry - Reevaluation(s) Reevaluation #1: 04/11/20 18:02 Medical records reviewed Reevaluation #2: 04/11/20 18:02 Patient remains asymptomatic heart rate in the 60s and 70s Reevaluation #3: 04/11/20 18:02 Patient informed results and is okay to be discharged EKG Findings - EKG Comments: EKG Findings:: EKG shows atrial fibrillation QRS 78 QTc 372 with a rate of 61 Medical Decision Making - Medical Decision Making 70 female for atrial fibrillation thought to be in rapid heart rate, patient's heart rate is normal here in the ER she can be discharged home - Lab Data Result diagrams: 04/11/20 16:10 04/11/20 16:10 Lab Results 04/11/20 04/11/20 04/11/20 Range/Units 16:10 16:10 16:10 WBC 7.4 (3.8-10.6) k/uL RBC 4.77 (3.80-5.40) m/uL Hgb 14.6 (11.4-16.0) gm/dL Hct 44.4 (34.0-46.0) % MCV 92.9 (80.0-100.0) fL MCH 30.7 (25.0-35.0) pg MCHC 33.0 (31.0-37.0) g/dL RDW 12.9 (11.5-15.5) % Plt Count 225 (150-450) k/uL Neutrophils % 66 % Lymphocytes % 23 % Monocytes % 7 % Eosinophils % 2 % Basophils % 1 % Neutrophils # 4.9 (1.3-7.7) k/uL Lymphocytes # 1.7 (1.0-4.8) k/uL Monocytes # 0.5 (0-1.0) k/uL Eosinophils # 0.1 (0-0.7) k/uL Basophils # 0.0 (0-0.2) k/uL PT 10.4 (9.0-12.0) sec INR 1.0 (<1.2) APTT 23.8 (22.0-30.0) sec Sodium (137-145) mmol/L Potassium (3.5-5.1) mmol/L Chloride (98-107) mmol/L Carbon Dioxide (22-30) mmol/L Anion Gap mmol/L BUN (7-17) mg/dL Creatinine (0.52-1.04) mg/dL Est GFR (CKD-EPI)AfAm (>60 ml/min/1.73 sqM) Est GFR (CKD-EPI)NonAf (>60 ml/min/1.73 sqM) Glucose (74-99) mg/dL Plasma Lactic Acid Sandro (0.7-2.0) mmol/L Calcium (8.4-10.2) mg/dL Phosphorus (2.5-4.5) mg/dL Magnesium (1.6-2.3) mg/dL Total Bilirubin (0.2-1.3) mg/dL AST (14-36) U/L ALT (4-34) U/L Alkaline Phosphatase (38-126) U/L Creatine Kinase (30-135) U/L Troponin I (0.000-0.034) ng/mL NT-Pro-B Natriuret Pep pg/mL Total Protein (6.3-8.2) g/dL Albumin (3.5-5.0) g/dL TSH (0.465-4.680) mIU/L Urine Color Light Yellow Urine Appearance Clear (Clear) Urine pH 5.5 (5.0-8.0) Ur Specific Winger 1.004 (1.001-1.035) Urine Protein Negative (Negative) Urine Glucose (UA) Negative (Negative) Urine Ketones Negative (Negative) Urine Blood Negative (Negative) Urine Nitrite Negative (Negative) Urine Bilirubin Negative (Negative) Urine Urobilinogen <2.0 (<2.0) mg/dL Ur Leukocyte Esterase Negative (Negative) 04/11/20 04/11/20 04/11/20 Range/Units 16:10 16:10 16:10 WBC (3.8-10.6) k/uL RBC (3.80-5.40) m/uL Hgb (11.4-16.0) gm/dL Hct (34.0-46.0) % MCV (80.0-100.0) fL MCH (25.0-35.0) pg MCHC (31.0-37.0) g/dL RDW (11.5-15.5) % Plt Count (150-450) k/uL Neutrophils % % Lymphocytes % % Monocytes % % Eosinophils % % Basophils % % Neutrophils # (1.3-7.7) k/uL Lymphocytes # (1.0-4.8) k/uL Monocytes # (0-1.0) k/uL Eosinophils # (0-0.7) k/uL Basophils # (0-0.2) k/uL PT (9.0-12.0) sec INR (<1.2) APTT (22.0-30.0) sec Sodium 133 L (137-145) mmol/L Potassium 5.1 (3.5-5.1) mmol/L Chloride 103 (98-107) mmol/L Carbon Dioxide 24 (22-30) mmol/L Anion Gap 6 mmol/L BUN 12 (7-17) mg/dL Creatinine 0.54 (0.52-1.04) mg/dL Est GFR (CKD-EPI)AfAm >90 (>60 ml/min/1.73 sqM) Est GFR (CKD-EPI)NonAf >90 (>60 ml/min/1.73 sqM) Glucose 92 (74-99) mg/dL Plasma Lactic Acid Sandro 1.0 (0.7-2.0) mmol/L Calcium 9.1 (8.4-10.2) mg/dL Phosphorus 4.4 (2.5-4.5) mg/dL Magnesium 2.1 (1.6-2.3) mg/dL Total Bilirubin 0.8 (0.2-1.3) mg/dL AST 39 H (14-36) U/L ALT 18 (4-34) U/L Alkaline Phosphatase 69 (38-126) U/L Creatine Kinase 70 (30-135) U/L Troponin I <0.012 (0.000-0.034) ng/mL NT-Pro-B Natriuret Pep pg/mL Total Protein 7.1 (6.3-8.2) g/dL Albumin 4.2 (3.5-5.0) g/dL TSH 1.720 (0.465-4.680) mIU/L Urine Color Urine Appearance (Clear) Urine pH (5.0-8.0) Ur Specific Winger (1.001-1.035) Urine Protein (Negative) Urine Glucose (UA) (Negative) Urine Ketones (Negative) Urine Blood (Negative) Urine Nitrite (Negative) Urine Bilirubin (Negative) Urine Urobilinogen (<2.0) mg/dL Ur Leukocyte Esterase (Negative) 04/11/20 Range/Units 16:10 WBC (3.8-10.6) k/uL RBC (3.80-5.40) m/uL Hgb (11.4-16.0) gm/dL Hct (34.0-46.0) % MCV (80.0-100.0) fL MCH (25.0-35.0) pg MCHC (31.0-37.0) g/dL RDW (11.5-15.5) % Plt Count (150-450) k/uL Neutrophils % % Lymphocytes % % Monocytes % % Eosinophils % % Basophils % % Neutrophils # (1.3-7.7) k/uL Lymphocytes # (1.0-4.8) k/uL Monocytes # (0-1.0) k/uL Eosinophils # (0-0.7) k/uL Basophils # (0-0.2) k/uL PT (9.0-12.0) sec INR (<1.2) APTT (22.0-30.0) sec Sodium (137-145) mmol/L Potassium (3.5-5.1) mmol/L Chloride (98-107) mmol/L Carbon Dioxide (22-30) mmol/L Anion Gap mmol/L BUN (7-17) mg/dL Creatinine (0.52-1.04) mg/dL Est GFR (CKD-EPI)AfAm (>60 ml/min/1.73 sqM) Est GFR (CKD-EPI)NonAf (>60 ml/min/1.73 sqM) Glucose (74-99) mg/dL Plasma Lactic Acid Sandro (0.7-2.0) mmol/L Calcium (8.4-10.2) mg/dL Phosphorus (2.5-4.5) mg/dL Magnesium (1.6-2.3) mg/dL Total Bilirubin (0.2-1.3) mg/dL AST (14-36) U/L ALT (4-34) U/L Alkaline Phosphatase (38-126) U/L Creatine Kinase (30-135) U/L Troponin I (0.000-0.034) ng/mL NT-Pro-B Natriuret Pep 640 pg/mL Total Protein (6.3-8.2) g/dL Albumin (3.5-5.0) g/dL TSH (0.465-4.680) mIU/L Urine Color Urine Appearance (Clear) Urine pH (5.0-8.0) Ur Specific Winger (1.001-1.035) Urine Protein (Negative) Urine Glucose (UA) (Negative) Urine Ketones (Negative) Urine Blood (Negative) Urine Nitrite (Negative) Urine Bilirubin (Negative) Urine Urobilinogen (<2.0) mg/dL Ur Leukocyte Esterase (Negative) Disposition Clinical Impression: Paroxysmal atrial fibrillation Disposition: HOME SELF-CARE Condition: Good Instructions (If sedation given, give patient instructions): A-fib (Atrial Fibrillation) (ED) Is patient prescribed a controlled substance at d/c from ED?: No Referrals: Flory Cordoba MD [Primary Care Provider] - 1-2 days
[2020-04-11 18:00] VITALS: BP 119/74; PULSE 65; RESP 12
== END 2020-04-11 18:44 | disposition home or self-care (01) ==
LOC: EC 15:15
DX: I48.0 Paroxysmal atrial fibrillation (principal); E78.5 Hyperlipidemia, unspecified; Z79.01 Long term (current) use of anticoagulants; Z79.899 Other long term (current) drug therapy; Z88.0 Allergy status to penicillin; Z88.1 Allergy status to other antibiotic agents; Z86.718 Personal history of other venous thrombosis and embolism; Z85.841 Personal history of malignant neoplasm of brain
CPT/HCPCS: 36415; 80053; 81003; 82550; 83605; 83735; 83880; 84100; 84443; 84484; 85025; 85610; 85730; 93005; 96360; 96361; 99285

== ENCOUNTER → 2020-06-14 | Outpatient (CLI) | payer MEDICARE ==
--- NOTE | 2020-06-15 10:17 | MM ---
Reason for exam: screening (asymptomatic). Last mammogram was performed 1 year and 3 months ago. History: Patient is postmenopausal, has history of other cancer at age 68, and is nulliparous. Benign excisional biopsy of both breasts, 1970. Took estrogen for 2 years. Took progesterone for 2 years. Physical Findings: A clinical breast exam by your physician is recommended on an annual basis and results should be correlated with mammographic findings. MG 3D Screening Mammo W/Cad Bilateral CC and MLO view(s) were taken. Prior study comparison: March 10, 2019, bilateral MG 3d screening mammo w/cad. June 29, 2017, bilateral MG 3d screening mammo w/cad. The breast tissue is heterogeneously dense. This may lower the sensitivity of mammography. Benign appearing bilateral calcifications. There is chronic nodularity bilaterally. No significant changes when compared with prior studies. ASSESSMENT: Benign, BI-RAD 2 RECOMMENDATION: Routine screening mammogram of both breasts in 1 year.
== END | disposition home or self-care (01) ==
LOC: RADMAMWWP 11:07
PROVIDERS: ATTEND Family Medicine
DX: Z12.31 Encounter for screening mammogram for malignant neoplasm of breast (principal)
CPT/HCPCS: 77063; 77067

== ENCOUNTER 2021-04-28 15:54 | Emergency (ER) | payer MEDICARE ==
[2021-04-28] MEDS ORDERED: IBUPROFEN 600 MG TAB PO STA (16:22)
--- NOTE | 2021-04-28 16:33 | ED ---
General Adult HPI - General Chief complaint: Extremity Injury, Lower Stated complaint: left ankle injury Time Seen by Provider: 04/28/21 16:01 Source: patient, family, RN notes reviewed Mode of arrival: wheelchair Limitations: no limitations - History of Present Illness Initial comments: 71-year-old female presents to the emergency department for evaluation of left ankle pain status post fall yesterday. Patient states she was ambulating with the assistance of family member when her left leg "gave out" causing her to fall. Patient states her entire left side is weak due to history of brain cancer, however, since this fall she has had left ankle pain that worsens with weight bearing. States she typically uses a wheelchair to get around. Patient also reports a fall earlier in the week with pain to the left hip. States her primary care provider called in an order to have that x-rayed and patient is requesting to have it done during this visit. Reports mild tenderness with palpation of the left hip. Denies fever, chills, headache, chest pain, shortness of breath, abdominal pain, nausea, vomiting, bowel or bladder changes. - Related Data Home Medications Medication Instructions Recorded Confirmed Atorvastatin [Lipitor] 10 mg PO HS 05/18/17 04/28/21 LORazepam [Ativan] 0.5 mg PO BID PRN 05/18/17 04/28/21 Apixaban [Eliquis] 5 mg PO BID 09/06/18 04/28/21 cycloSPORINE 0.05% OPHTH SOLN 1 applic BOTH EYES BID 03/18/20 04/28/21 [Restasis] Acetaminophen [Tylenol Arthritis] 1,300 mg PO ONCE PRN 04/28/21 04/28/21 Famotidine [Pepcid] 20 mg PO BID PRN 04/28/21 04/28/21 levETIRAcetam [Keppra] 1,000 mg PO BID 04/28/21 04/28/21 Allergies Allergy/AdvReac Type Severity Reaction Status Date / Time amoxicillin Allergy Rash/Hives Verified 04/28/21 18:06 cephalexin Allergy Rash/Hives Verified 04/28/21 18:06 Review of Systems ROS Statement: Those systems with pertinent positive or pertinent negative responses have been documented in the HPI. ROS Other: All systems not noted in ROS Statement are negative. Past Medical History Past Medical History: Atrial Fibrillation, Cancer, Deep Vein Thrombosis (DVT), Hyperlipidemia Additional Past Medical History / Comment(s): WAS IN ER FOR RASH AFTER HAVING CHEMO 03/29/19-RASH RESOLVED NOW. HAS CHEMO 5 DAYS A MONTH. diverticulitis, brain cancer. LLE DVT. HAD AN EPISODE OF A-FIB 09/06/18. POLYPS IN THROAT. History of Any Multi-Drug Resistant Organisms: None Reported Past Surgical History: Breast Surgery, Tonsillectomy, Uterine Ablation Additional Past Surgical History / Comment(s): breast surgery,-BENIGN. brain surgery. UTERINE BIOPSY. COLONOSCOPY Past Anesthesia/Blood Transfusion Reactions: No Reported Reaction Past Psychological History: No Psychological Hx Reported Smoking Status: Never smoker Past Alcohol Use History: Occasional Past Drug Use History: None Reported - Past Family History Father Family Medical History: Cancer Additional Family Medical History / Comment(s): PROSTATE CANCER Mother Family Medical History: Myocardial Infarction ([place]) General Exam Limitations: no limitations General appearance: alert, in no apparent distress, other (Well-developed, well- nourished female in no acute distress. Initial temperature 98.1, pulse 89, respiration 18, blood pressure 140/85, pulse ox 96% on room air) Head exam: Present: atraumatic, normocephalic, normal inspection Respiratory exam: Present: normal lung sounds bilaterally. Absent: respiratory distress, wheezes, rales, rhonchi, stridor Cardiovascular Exam: Present: regular rate, normal rhythm, normal heart sounds. Absent: systolic murmur, diastolic murmur, rubs, gallop, clicks GI/Abdominal exam: Present: soft, normal bowel sounds. Absent: distended, tenderness, guarding, rebound, rigid Left Hip exam: Present: normal inspection, full ROM, tenderness (mild left lateral hip pain with palpation; no rotation or shortening; no contusion or deformity.) Upper Leg exam: Present: normal inspection, full ROM. Absent: tenderness Knee exam: Present: normal inspection, full ROM. Absent: tenderness Lower Leg exam: Present: normal inspection, full ROM Ankle exam: Present: swelling (Left lateral ankle swelling; no contusion or erythema noted). Absent: normal inspection, full ROM, tenderness Foot/Toe exam: Present: normal inspection, full ROM. Absent: tenderness, swelling, ecchymosis Neurovascular tendon exam: Present: no vascular compromise, motor deficit (Patient is normally wheelchair-bound and ambulates minimally with max assist). Absent: pulse deficit, abnormal cap refill, sensory deficit Back exam: Present: normal inspection Neurological exam: Present: alert, oriented X3, CN II-XII intact Psychiatric exam: Present: normal affect, normal mood Skin exam: Present: warm, dry, intact, normal color. Absent: rash Course Vital Signs 04/28/21 04/28/21 15:55 18:38 Temperature 98.1 F 98.2 F Pulse Rate 89 78 Respiratory 19 16 Rate Blood Pressure 140/85 128/78 O2 Sat by Pulse 96 96 Oximetry Procedures - Orthopedic Splinting/Casting Injury #1 Lower Extremity Injury Location: ankle Lower Extremity Immobilizer: posterior splint (Short leg posterior splint applied to the left ankle. Splint care reviewed with patient and family; they verbalized understanding. ) Other Orthopedic Equipment: other ( Patient declines crutches as she is mostly wheelchair-bound; instructed to remain nonweightbearing.) Medical Decision Making - Medical Decision Making 71-year-old female presents to the emergency department accompanied by family for evaluation of left ankle injury sustained from a fall yesterday evening. Patient is primarily wheelchair dependent with minimal weightbearing activity, however attempted to ambulate with assistance of family resulting in her fall. Upon exam, moderate amount of swelling is noted to the left lateral malleolus. Patient is somewhat able to flex and extend the left foot, able to tolerate inversion movement. No loss of sensation; Cap Refill within normal limits. +2 pedal pulse. X-ray of the left ankle was obtained and shows moderate soft tissue swelling and ankle mortise disruption consistent with ligamentous tearing or injury. Additionally she complained of left hip pain from a fall several days ago. Her PCP ordered an outpatient x-ray to evaluate this injury; patient and family requesting to have the x-ray done while present for this visit therefore hip x-ray was ordered with no acute findings. Findings were discussed with patient. Splint was placed to the left lower extremity. Discussed nonweightbearing requirement and did offer crutches, however patient and family verified that she would be better off using her wheelchair exclusively. Family states they are able to accommodate and assist her at home and with transfers. Spoke with patient and family about keeping affected extremity elevated and applying ice as tolerated. Splint care was again reviewed. Instructed to follow up with orthopedist for a recheck. Also suggested a follow up phone call to the PCP regarding negative left hip x-ray. Patient will be discharged home to follow up outpatient. Patient and family verbalize understanding and agrees with this plan. This patient's care was discussed with my attending Dr. Barnhart. - Radiology Data Radiology results: report reviewed, image reviewed X-ray of the left ankle was obtained. Report was reviewed in its entirety. Impression per Dr. Nolasco is moderate soft tissue swelling. Ankle mortise disruption consistent with ligamentous tearing or injury. No acute osseous fracture clearly seen. Left hip x-ray was obtained. Report was reviewed in its entirety. Impression per is generalized osteopenia which limits evaluation for occult nondisplaced fracture. No displaced fractures seen. Advanced left hip joint OA. No significant soft tissue abnormalities. Disposition Clinical Impression: Left ankle injury Disposition: HOME SELF-CARE Condition: Stable Instructions (If sedation given, give patient instructions): Ankle Sprain (ED) Additional Instructions: Continue to using your wheelchair. Remain non-weightbearing on the left leg. Follow-up with orthopedics in the next 24-48 hours. Call the office first thing tomorrow morning. May take Tylenol as needed for pain. Elevate the affected extremity when at rest. May apply ice. Keep splint in place; do not get it wet. Return to the emergency department with any new, worsening, or concerning symptoms. Is patient prescribed a controlled substance at d/c from ED?: No Referrals: Flory Cordoba MD [Primary Care Provider] - 1-2 days [facility] [Provider Group] - 1-2 days Time of Disposition: 18:27
--- NOTE | 2021-04-28 17:01 | XR ---
EXAMINATION TYPE: XR Hip Complete LT EXAMINATION TYPE: XR Hip Complete LT DATE OF EXAM: 04/28/2021 COMPARISON: NONE HISTORY: 71 years Female. STUDY INDICATION GIVEN: left hip s/p fall . TECHNIQUE: AP and lateral radiographs of the left hip IMPRESSION: There is generalized osteopenia which limits evaluation for occult and nondisplaced fracture. No displaced fractures are seen. Advanced left hip joint OA. No significant soft tissue abnormalities.
--- NOTE | 2021-04-28 17:01 | XR ---
EXAMINATION TYPE: XR ankle complete LT DATE OF EXAM: 04/28/2021 CLINICAL HISTORY: Pain and swelling after fall injury yesterday. TECHNIQUE: Frontal, lateral and oblique images of the left ankle are obtained. COMPARISON: None. FINDINGS: Sycuan osseous structures are demineralized. Moderate soft tissue swelling at ankle joint level. There is asymmetric lateral translation of the talus relative to the distal tibia with lateral mortise widening and medial angulation without discrete fracture seen. Bohler angle is maintained. IMPRESSION: There is moderate soft tissue swelling. Ankle mortise disruption consistent with ligamen tous tearing or injury. No acute osseous fracture clearly seen
[2021-04-28 18:39] VITALS: BP 128/78; PULSE 78; RESP 16; TEMP 98.2
== END 2021-04-28 18:38 | disposition home or self-care (01) ==
LOC: EC 15:54
DX: S99.912A Unspecified injury of left ankle, initial encounter (principal); I48.91 Unspecified atrial fibrillation; E78.5 Hyperlipidemia, unspecified; Z86.718 Personal history of other venous thrombosis and embolism; Z72.89 Other problems related to lifestyle; W18.30XA Fall on same level, unspecified, initial encounter
CPT/HCPCS: 29515; 73502; 99283